=== PATIENT | female | born 1960 | race Caucasian/White ===

== ENCOUNTER 2017-02-15 19:34 | Emergency (ER) | payer BC ==
[2017-02-15 19:40] VITALS: BP 165/75
[2017-02-15] MEDS ORDERED: HYDROcodone/ACETAMIN 5-325 MG* 1 TAB PO ONE (20:11)
[2017-02-15] MEDS ORDERED: traMADol TAB* 50 MG PO ONE (20:26)
--- NOTE | 2017-03-03 15:30 | ED ---
Lower Extremity - HPI Summary HPI Summary: Patient presents with left knee pain after "pulling" the knee while lifting something large. She has chronic knee pain and has had an MRI recently which showed normal degenerative changes. Denies numbness, tingling, temperature or color changes to the area. She is ambulating, but with pain. She does not take pain medication, but attempts to take ibuprofen for the pain. She has close follow up with ortho. She is just concerned today for a worsening injury. Denies radiation of pain, pain is 8/10 and intermittent. Worse with ambulation and movement, better with rest. - History of Current Complaint Chief Complaint: EDExtremityLower Stated Complaint: LT KNEE PAIN Time Seen by Provider: 02/15/17 19:46 Hx Obtained From: Patient Mechanism Of Injury: Twisted Onset of Pain: Hours Onset/Duration: Still Present Severity Initially: Moderate Severity Currently: Moderate Pain Intensity: 9 Pain Scale Used: 0-10 Numeric Timing: Constant Location: Is Discrete @ - left knee Character Of Pain: Aching Aggravating Factor(s): Standing, Ambulation Alleviating Factor(s): Rest Able to Bear Weight: Yes - Risk Factors Gout Risk Factors: Age Over 40 DVT Risk Factors: Negative Septic Arthritis Risk Factor: Negative - Allergies/Home Medications Allergies/Adverse Reactions: Allergies Allergy/AdvReac Type Severity Reaction Status Date / Time Morphine Allergy Shortness Verified 02/15/17 20:20 of Breath Oxycodone Allergy Shortness Verified 02/15/17 20:20 of Breath PMH/Surg Hx/FS Hx/Imm Hx Previously Healthy: Yes Endocrine/Hematology History: Reports: Hx Thyroid Disease - non-active thyroid Denies: Hx Diabetes Cardiovascular History: Reports: Hx Angina, Hx Coronary Artery Disease, Hx Hypercholesterolemia, Hx Myocardial Infarction Denies: Hx Congestive Heart Failure, Hx Hypertension, Hx Pacemaker/ICD, Hx Valvular Heart Disease Respiratory History: Reports: Hx Sleep Apnea - home cpap Denies: Hx Asthma, Hx Chronic Obstructive Pulmonary Disease (COPD) GI History: Comment Only: Hx Gall Bladder Disease - gall bladder removal 2010 History: Denies: Hx Renal Disease Musculoskeletal History: Reports: Hx Arthritis - back/hips Sensory History: Reports: Hx Contacts or Glasses - reading glasses Denies: Hx Hearing Aid Opthamlomology History: Reports: Hx Contacts or Glasses - reading glasses Neurological History: Reports: Hx Migraine Psychiatric History: Denies: Hx Panic Disorder - Cancer History Hx Chemotherapy: No Hx Radiation Therapy: No - Surgical History Surgery Procedure, Year, and Place: choly-2011; c section x3; removal of bone spur on LEFT heel 2009; 2 Cardiac stents. LEFT LEG ANGIOPLASTY 2016 Hx Anesthesia Reactions: No - Immunization History Date of Tetanus Vaccine: up to date Date of Influenza Vaccine: 2013 Hx Pertussis Vaccination: No Immunizations Up to Date: Unable to Obtain/Confirm Infectious Disease History: No Infectious Disease History: Denies: Traveled Outside the [place] in Last 30 Days - Family History Known Family History: Positive: Other - breast cancer (mother) - Social History Occupation: Employed Full-time Lives: With Family Alcohol Use: Rare Alcohol Amount: 1-2 drinks Hx Substance Use: No Substance Use Type: Reports: None Hx Tobacco Use: Yes Smoking Status (MU): Light Every Day Tobacco Smoker Type: Cigarettes Amount Used/How Often: 1/2 ppd Length of Time of Smoking/Using Tobacco: 37 years Have You Smoked in the Last Year: Yes Review of Systems Constitutional: Negative Eyes: Negative Respiratory: Negative Gastrointestinal: Negative Positive: no symptoms reported, see HPI Positive: Arthralgia, Myalgia Skin: Negative Psychological: Normal All Other Systems Reviewed And Are Negative: Yes Physical Exam - Summary Physical Exam Summary: Thorough physical exam was performed, focusing on knee special tests of the left knee. Pain on palpation over lateral aspect and superior aspect of knee with mild amount of effusion. Due to patient pain around injury, physical exam was limited. Valgus and varus force without pain. No posterior sag sign, negative posterior drawer test, + anterior drawer test. Quadriceps active test negative. Negative mcmurrys test. No laxity in the joint noted. No temperature change or pallor noted bilaterally. No ecchymosis noted over knee. No lesion or disruption of skin is seen. Unable to bear weight. Pulses intact bilaterally. Triage Information Reviewed: Yes Vital Signs On Initial Exam: Initial Vitals Temp Pulse Resp BP Pulse Ox 96.9 F 80 16 165/75 98 02/15/17 19:38 02/15/17 19:38 02/15/17 19:38 02/15/17 19:38 02/15/17 19:38 Vital Signs Reviewed: Yes Appearance: Positive: Well-Appearing, Well-Nourished Skin: Positive: Warm, Skin Color Reflects Adequate Perfusion Head/Face: Positive: Normal Head/Face Inspection Eyes: Positive: EOMI, PAULA, Conjunctiva Clear Neck: Positive: Supple, No Lymphadenopathy Respiratory/Lung Sounds: Positive: Clear to Auscultation, Breath Sounds Present Cardiovascular: Positive: Normal, RRR Musculoskeletal: Positive: Pain @ - left knee Neurological: Positive: Speech Normal Psychiatric: Positive: Normal Diagnostics - Vital Signs Vital Signs Temp Pulse Resp BP Pulse Ox 02/15/17 20:14 96.9 F 80 16 165/75 100 02/15/17 19:38 96.9 F 80 16 165/75 98 - Laboratory Lab Statement: Any lab studies that have been ordered have been reviewed, and results considered in the medical decision making process. Lower Extremity Course/Dx - Course Course Of Treatment: Despite MRI, with new injury, atient sent to imaging. Xray negative for fracture or other acute findings. Soft tissue swelling noted over the knee. Knee was fatuma wrapped to patient comfort to allow for immobilization for this period of time. Tramadol given. Patient given orthopedic follow up in 5-7 days. Encouraged Ibuprofen 600mg three times daily with meals for pain. Return precautions given. Educated patient regarding ankle injuries and healing time and the possibility of further evaluation and imaging as orthopedist sees fit. - Diagnoses Differential Diagnosis/HQI/PQRI: Positive: Fracture (Closed), Fracture (Open), Sprain, Strain Provider Diagnoses: Knee strain Discharge - Discharge Plan Condition: Stable Disposition: HOME Prescriptions: traMADol TAB* [Ultram*] 50 mg PO Q8H PRN #15 tab MDD 4 PRN Reason: Pain Patient Education Materials: Knee Pain (ED) Referrals: Daniel Pierce [employer] [Primary Care Provider] - Additional Instructions: Follow up with orthopedic physician in 5-7 days. Pain medication has been prescribed to you. If numbness, tingling, decreased sensation, increased pain, temperature changes or pallor noted in toes, come back to ER immediately. Protect the area. For your comfort level, do not bear weight, pull or push until you can injury is somewhat healed. This may involve the need for immobilization or crutches for a period of time. Rest the involved area, but not too long. You may need to be off your injury for some time to allow for healing, however excessive immobilization of joints can lead to stiffness and delay healing time. Early mobilization is encouraged if it is pain-free. Ice. Not directly on the skin. Cover with a towel. Apply ice no more than 30 minutes at a time Compression: You may use and keep an fatuma wrap bandage over the injury to decrease swelling. Again, this should be limited and be taken off periodically to encourage early range of motion and mobilization. Elevate: Try to elevate the injured area above the heart whenever possible.
== END 2017-02-15 20:35 | disposition home or self-care (01) ==
LOC: ED 19:34
DX: S86.912A Strain of unspecified muscle(s) and tendon(s) at lower leg level, left leg, initial encounter (principal); X50.0XXA Overexertion from strenuous movement or load, initial encounter; Y93.9 Activity, unspecified; Y92.9 Unspecified place or not applicable; E07.9 Disorder of thyroid, unspecified; I25.119 Atherosclerotic heart disease of native coronary artery with unspecified angina pectoris; Z95.5 Presence of coronary angioplasty implant and graft; E78.00 Pure hypercholesterolemia, unspecified; G47.30 Sleep apnea, unspecified; G43.909 Migraine, unspecified, not intractable, without status migrainosus; Z90.49 Acquired absence of other specified parts of digestive tract; Z88.5 Allergy status to narcotic agent; F17.210 Nicotine dependence, cigarettes, uncomplicated
CPT/HCPCS: 99282; A9270-GY

== ENCOUNTER 2017-03-16 10:20 | Observation (INO) | payer BC ==
[2017-03-16] MEDS ORDERED: Aspirin Low Dose CHEW TAB* 81 MG PO ONE (11:34)
[2017-03-16 12:20] LABS: Hematocrit 41 % (35-47); Hemoglobin 13.6 g/dl (12.0-16.0); Mean Corpuscular HGB Conc 33 g/dl (31-36); Mean Corpuscular Hemoglobin 29 pg (27-31); Mean Corpuscular Volume 87 fL (80-97); Mean Platelet Volume 8 um3 (7.4-10.4); Red Blood Count 4.69 10^6/ul (4.0-5.4); Red Cell Distribution Width 16 % (10.5-15); White Blood Count 6.4 10^3/ul (3.5-10.8)
[2017-03-16 12:29] LABS: Albumin 4.2 g/dL (3.2-5.2); BUN/Creatinine Ratio 12.2 (8-20); Calcium 9.8 mg/dL (8.6-10.3); EGFR African American 93.4 (>60); EGFR Non-African American 72.6 (>60); Globulin 3.1 g/dL (2-4); Potassium 3.7 mmol/L (3.5-5.0); Total Bilirubin 0.5 mg/dL (0.2-1.0); Total Protein 7.3 g/dL (6.4-8.9)
--- NOTE | 2017-03-16 12:30 | RAD ---
HISTORY: Chest pain COMPARISONS: March 17, 2016 VIEWS:1: Single frontal portable view of the chest at 11:42 AM FINDINGS: LINES AND TUBES: None. CARDIOMEDIASTINAL SILHOUETTE: The cardiomediastinal silhouette is normal for portable technique. PLEURA: The costophrenic angles are sharp. No pleural abnormalities are noted. LUNG PARENCHYMA: The lungs are clear. ABDOMEN: The upper abdomen is clear. There is no subphrenic gas. BONES AND SOFT TISSUES: No bone or soft tissue abnormalities are noted. IMPRESSION: NO ACTIVE CARDIOPULMONARY DISEASE.
[2017-03-16] MEDS ORDERED: Iohexol 350* (CONTRAST) 500 ML MDV IV ONE (13:42)
[2017-03-16] MEDS: Nitroglycerin TAB 0.4 MG* 0.4 MG TAB SL ONE ×2 (13:55→14:02)
--- NOTE | 2017-03-16 13:56 | RAD ---
HISTORY: Chest pain, shortness of breath COMPARISONS: July 02, 2015 TECHNIQUE: Multiple contiguous axial CT scans of the chest were obtained after the administration of nonionic intravenous contrast, timed to the pulmonary arterial phase of contrast enhancement.. Coronal and sagittal multiplanar reformations are also submitted for review. FINDINGS: NECK AND THYROID: The lower neck and thyroid are unremarkable. CHEST WALL: There is no lower cervical, axillary, or supraclavicular lymphadenopathy by size criteria. HEART AND PERICARDIUM: The heart is unremarkable. AORTA AND PULMONARY VASCULATURE: There is no pulmonary arterial filling defect to suggest pulmonary embolism. Evaluation of the aorta is limited due to technique. The aorta is unremarkable. MEDIASTINUM: There is no mediastinal lymphadenopathy by size criteria. JOLLY: There is no hilar lymphadenopathy by size criteria. AIRWAY AND ESOPHAGUS: The airway is unremarkable, without endobronchial filling defect. The esophagus is grossly normal. LUNG PARENCHYMA: The lungs are clear. The subpleural nodule noted on 2016 examination is not well-visualized on the current examination PLEURA: No pleural abnormalities are noted. UPPER ABDOMEN: The upper abdomen is unremarkable. BONES AND SOFT TISSUES: No bone or soft tissue abnormalities are noted. OTHER: None. IMPRESSION: NO PULMONARY ARTERIAL FILLING DEFECT TO SUGGEST PULMONARY EMBOLISM
[2017-03-16] MEDS ORDERED: Nitroglycerin TAB 0.4 MG* 0.4 MG TAB SL ONE (14:34)
[2017-03-16] MEDS ORDERED: Morphine INJ* 2 MG/ML 1 ML SYRINGE IV ONE (14:34)
[2017-03-16] MEDS ORDERED: HYDROmorphone* 1 MG/ML 1 ML SYR IV SLOW PU ONE (14:44)
[2017-03-16] MEDS ORDERED: Ketorolac INJ* 30 MG/ML 1 ML VIAL IV PUSH ONE (14:46)
[2017-03-16] MEDS ORDERED: Ketorolac INJ* 30 MG/ML 1 ML VIAL ONE (14:47)
[2017-03-16] MEDS: Heparin VIAL(*) 5000 UNITS/ML VIAL (FIVE THOUSAND) SUBCUT SCH (20:53)
[2017-03-16] MEDS ORDERED: Metoprolol Tartrate TAB* 25 MG PO SCH (21:00)
[2017-03-16] MEDS: Nitroglycerin TAB 0.4 MG* 0.4 MG TAB SL PRN ×2 (21:34→21:44)
--- NOTE | 2017-03-16 22:08 | HP ---
CC: Daniel Pierce NP * [facility] MEDICINE HISTORY AND PHYSICAL: DATE OF ADMISSION: 03/16/17 PRIMARY CARE PROVIDER: Daniel Pierce NP ATTENDING PHYSICIAN: Dr. Diogo Barron * (dictation provided by Allie Crum NP ). CHIEF COMPLAINT: Chest pain. HISTORY OF PRESENT ILLNESS: Ms. Thorpe is a 56-year-old female with a past medical history of coronary artery disease with an OK in 2014, for which 2 stents were placed as well as peripheral vascular disease, obstructive sleep apnea, hypothyroidism, and continued smoking, who presents to the hospital today with concern for chest pain. Ms. Thorpe states that she recently ran out of her prescription for Effient. She was off Effient for 5 days. She resumed it on Thursday. On Thursday evening, she developed chest discomfort. She described it as midsternal, radiating into her back. It does not radiate into the arms or neck. She has had nausea or shortness of breath. She has had some mild diarrhea. She has been tolerating oral intake well. She states that the pain is constant, is not relieved or worsened by anything. At this point, in the emergency room, she said she is comfortable and has no further pain after receiving nitroglycerin. She last followed up with Dr. Zarco 2 months ago and it was a routine appointment with no issues identified. The patient was admitted to the hospital in March 2016 for chest pain, during which time, a stress test was performed, which was read as low risk. In the emergency room, Ms. Thorpe had 2 troponins, which were 0.00 and 0.00. She had an EKG, however, which did show flattening across the board on all leads in the T waves compared to a previous from 03/18/16. PAST MEDICAL HISTORY: 1. Coronary artery disease with OK, 2 stents placed to the RCA in 2014. 2. Hypothyroidism. 3. Hypertension. 4. Peripheral vascular disease. 5. Hyperlipidemia. 6. GERD. 7. Obstructive sleep apnea. 8. History of 3 C-sections. 9. Cholecystectomy. MEDICATIONS: 1. Effient 10 mg p.o. daily. 2. Aspirin 81 mg p.o. daily. 3. Meloxicam 15 mg p.o. daily. 4. Atorvastatin 80 mg p.o. daily. 5. Metoprolol tartrate 25 mg p.o. b.i.d. ALLERGIES: To MORPHINE and OXYCODONE, which the patient states caused severe chest pain. FAMILY HISTORY: The patient reports her mother has breast cancer history, but is alive. She does not know her father's history. SOCIAL HISTORY: The patient is a smoker since she was 17, she quit for a short time after her heart attack, but is now back to smoking one-half pack per day. She drinks alcohol only very occasionally. She states her is her healthcare proxy. REVIEW OF SYSTEMS: A 14-point review of systems was completed with Ms. Thorpe and all those not mentioned above were negative. PHYSICAL EXAMINATION GENERAL: Ms. Thorpe is sitting in the bed. She is in no acute distress. VITAL SIGNS: Temperature 97.8, heart rate 51, respiratory rate 14, O2 saturation 95% on room air, blood pressure 154/97. LUNGS: Clear to auscultation bilaterally with no accessory muscle use and good aeration. HEART: S1, S2. No murmur, rub, or gallop, and regular. ABDOMEN: Soft, nontender with bowel sounds positive x4. EXTREMITIES: No cyanosis or edema. NEURO: She is alert. She is oriented x3. She moves all extremities equally. There is no facial asymmetry or focal weakness. Extraocular movements are intact. SKIN: Intact. DIAGNOSTIC STUDIES/LAB DATA: WBC 6.4, hemoglobin 13.6, hematocrit 41, platelet count 197. Sodium 138, potassium 3.7, chloride 104, serum bicarbonate 27, BUN 10, creatinine 0.82, glucose 103, lactic acid 0.9. Troponin 0.00 and 0.00. EKG shows sinus bradycardia with flattened T waves across all the leads, heart rate about 57. Chest/thorax CTA shows no pulmonary arterial filling defect to suggest pulmonary embolism. Chest x-ray shows no active cardiopulmonary disease. ASSESSMENT AND PLAN: Ms. Thorpe is a 56-year-old female with past medical history of coronary artery disease with myocardial infarction and stent placement x2 to right coronary artery as well as persistent smoking and hypertension, who presents today to the hospital with concern for chest pain at rest, persistent over the past 3 days. Our plans are for observation in the hospital for the followin. Chest pain: The patient reports nonexertional chest pain that has been steady for the past 3 days. She has had 2 troponins, which are negative; however, her EKG did show flattening of T waves across all leads. Our plans will be for observation in the hospital for a stress test tomorrow. In the meantime, she will have a third troponin and telemetry monitoring, also repeat her EKG in the a.m. 2. Hypertension. Continue metoprolol. 3. History of coronary artery disease. Continue aspirin. 4. Hyperlipidemia. Continue atorvastatin. 5. Obstructive sleep apnea. The patient will be offered BiPAP. 6. DVT prophylaxis. With heparin subcu. 7. Disposition. To telemetry floor. TIME SPENT: Approximately 60 minutes was spent on the admission of this patient , more than half the time was spent with the patient at the bedside reviewing the events leading up to this hospitalization, performing the physical examination, and reviewing my plan of care. ALLIE CRUM NP [id number]/[facility] #: [id number] MONICA
[2017-03-16] MEDS ORDERED: Acetaminophen TAB* 325 MG PO PRN (23:40)
--- NOTE | 2017-03-17 00:05 | PN ---
Progress Note - Progress Note Date of Service: 03/17/17 Note: Paged by RN for persistent HR in low 40's. Patient asymptomatic at rest. BP normal. Will decrease metoprolol to 12.5 mg PO BID
[2017-03-17] MEDS: Heparin VIAL(*) 5000 UNITS/ML VIAL (FIVE THOUSAND) SUBCUT SCH ×2 (05:10→13:55)
[2017-03-17 06:02] LABS: HDL Cholesterol 41.5 mg/dL
[2017-03-17] MEDS ORDERED: Atorvastatin* 80 MG TAB PO SCH (09:00)
[2017-03-17] MEDS ORDERED: Aspirin EC Low Dose* 81 MG TAB.EC PO SCH (09:00)
[2017-03-17] MEDS ORDERED: Metoprolol Tartrate TAB* 25 MG PO SCH (09:00)
[2017-03-17] MEDS ORDERED: CMCS: Prasugrel (NF) 10 MG PO SCH (09:00)
--- NOTE | 2017-03-17 11:35 | PN ---
Subjective Date of Service: 03/17/17 Interval History: Patient seen this morning. Reports some mild chest pain that has been persistent , improved from presentation. No associated SOB, nausea, vomiting, diaphoresis. Says her previous cardiac events caused much more significant pain. Family History: Unchanged from Admission Social History: Unchanged from Admission Past Medical History: Unchanged from Admission Objective Active Medications: Acetaminophen (Tylenol Tab*) 650 mg PO Q6H PRN Aspirin (Aspirin Ec Low Dose*) 81 mg PO DAILY [facility] Atorvastatin Calcium (Lipitor*) 80 mg PO DAILY [facility] Heparin Sodium (Porcine) (Heparin Vial(*)) 5,000 units SUBCUT Q8HR [facility] Metoprolol Tartrate (Lopressor Tab*) 12.5 mg PO BID [facility] Nitroglycerin (Nitroglycerin Tab 0.4 Mg*) 0.4 mg SL Q5M PRN Prasugrel (Effient (Nf)) 10 mg PO DAILY [facility] Vital Signs 03/16/17 03/16/17 03/16/17 16:29 19:33 22:44 Temperature 97.2 F 97.5 F 98.6 F Pulse Rate 51 52 50 Respiratory 16 20 18 Rate Blood Pressure 149/73 175/78 148/76 (mmHg) O2 Sat by Pulse 97 97 97 Oximetry 03/16/17 03/17/17 03/17/17 23:34 00:04 03:59 Temperature 97.3 F 97.5 F Pulse Rate 48 48 54 Respiratory 16 16 Rate Blood Pressure 129/69 131/67 142/85 (mmHg) O2 Sat by Pulse 96 94 Oximetry 03/17/17 03/17/17 06:22 07:16 Temperature 97.4 F Pulse Rate 48 Respiratory 16 20 Rate Blood Pressure 179/84 (mmHg) O2 Sat by Pulse 95 Oximetry Oxygen Devices in Use Now: None Appearance: Middle-aged, obese, F, laying in bed in NAD Eyes: No Scleral Icterus Ears/Nose/Mouth/Throat: Mucous Membranes Moist Neck: NL Appearance and Movements; NL JVP Respiratory: Symmetrical Chest Expansion and Respiratory Effort, Clear to Auscultation Cardiovascular: NL Sounds; No Murmurs; No JVD, RRR Abdominal: NL Sounds; No Tenderness; No Distention Lymphatic: No Cervical Adenopathy Extremities: No Edema Skin: No Rash or Ulcers Neurological: Alert and Oriented x 3 Result Diagrams: 03/16/17 12:04 03/16/17 12:04 Assess/Plan/Problems-Billing Assessment: Chest pain in a 56 yo F with hx of HTN, HLD, CAD s/p PCI, PVD, hypothyroidism, MARI - Patient Problems (1) Chest pain Current Visit: Yes Comment: Still present to a mild degree. Some bradycardia on tele. Troponins remain negative. EKG with persistent T wave flattening. Stress test pending. (2) CAD (coronary artery disease) Current Visit: Yes Comment: Continue ASA, prasugrel, statin. Metoprolol decreased overnight due to bradycardia. (3) DVT prophylaxis Current Visit: Yes Comment: HSQ Status and Disposition: Potential discharge if stress test negative
[2017-03-17] MEDS ORDERED: Regadenoson* 0.4 MG/5 ML SYRINGE ONE (11:43)
[2017-03-17] MEDS ORDERED: Aminophylline IV* 25 MG/ML 10 ML VIAL ONE (11:43)
[2017-03-17 12:52] VITALS: BP 162/79
--- NOTE | 2017-03-17 14:13 | RAD ---
Edited for charges. INDICATION: Chest pain. Previous myocardial infarction. Multiple risk factors. COMPARISON: March 18, 2016 TECHNIQUE: 10.890 mCi of Tc-99m Myoview were administered IV. SPECT images of the heart were obtained. Later on the same day. Under the direction of Dr. Jordan, the patient was given an IV injection of a pharmacologic stress agent. Subsequently, the patient was given an IV injection of 26.600 mCi Tc-99m Myoview. SPECT images of the heart were obtained and a gated wall motion study was performed. FINDINGS: Gated wall motion images were obtained at stress and demonstrate wall motion to be within normal limits. The calculated left ventricular ejection fraction is 73 % at stress. Estimated LEFT ventricular end diastolic volume is 79 mL. TID 1.13. Anterior breast attenuation noted. Based on review of the attenuation corrected and non corrected images the distribution of radiopharmaceutical within the myocardium on the stress and rest images is within normal limits. No fixed or reversible regions of hypoperfusion evident. IMPRESSION: 1. No evidence for stress induced myocardial ischemia or presence of an infarct. 2. Normal left ventricular wall motion and ejection fraction. ASSESSMENT: LOW RISK. Based on imaging criteria from ACC/AHA 2002 Guideline Update for the Management of Patients With Chronic Stable Angina Table 23. Noninvasive Risk Stratification. MTDD
--- NOTE | 2017-03-18 02:52 | DS ---
CC: Daniel Pierce NP * DISCHARGE SUMMARY: DATE OF ADMISSION: 03/16/17 DATE OF DISCHARGE: 03/17/17 PRIMARY CARE PHYSICIAN: Daniel Pierce NP PRINCIPAL DISCHARGE DIAGNOSIS: Chest pain. SECONDARY DIAGNOSES: 1. History of coronary artery disease. 2. Hypothyroidism. 3. Hypertension. 4. Peripheral vascular disease. 5. Hyperlipidemia. 6. Gastroesophageal reflux disease. 7. Obstructive sleep apnea. DISCHARGE MEDICATION REGIMEN: 1. Meloxicam 50 mg by mouth daily. 2. Prasugrel 10 mg by mouth daily. 3. Metoprolol tartrate 12.5 mg by mouth 2 times daily. 4. Atorvastatin 80 mg by mouth daily. 5. Aspirin 81 mg by mouth daily. Medication changes made: Metoprolol dose decreased from 25 to 12.5 mg by mouth 2 times daily. STUDIES DONE DURING HOSPITALIZATION: Chest x-ray. Impression: No active cardiopulmonary disease. CTA of the chest: No pulmonary arterial filling defect to suggest pulmonary embolism. Nuclear cardiac stress test: Impression: No evidence for a stress-induced myocardial ischemia or presence of an infarct. Normal left ventricular wall motion and ejection fraction. Assessment: Low risk. HISTORY OF PRESENT ILLNESS AND HOSPITAL SUMMARY: Please see the full history and physical by Allie Crum NP, for full details. Briefly, Ms. Thorpe is a 56- year-old female with a past medical history as above who presented to the hospital with 2 to 3 days of a constant chest pain. She felt like perhaps she had some improvement in the chest pain after receiving nitroglycerin in the emergency department. Despite her constant pain, the patient's troponins remain negative, although her EKG did show some T-wave flattening which was new. She was monitored in the hospital overnight. She did have some bradycardia with heart rates dipping into the 40s. Her metoprolol was decreased from 25 to 12.5 mg by mouth 2 times daily. She underwent a nuclear cardiac stress test that was read as low risk. It does not seem that this chest pain is cardiac in nature. The patient will be discharged home with PCP followup as an outpatient. TIME SPENT: Total time spent on this discharge, 35 minutes. This is a summary of the hospitalization, please see the full medical record for further details. [id number]/[facility] #: [id number] MTDD
== END 2017-03-17 14:49 | disposition home or self-care (01) ==
LOC: ED 10:20 → MEDTELE 15:52
PROVIDERS: ADMIT Internal Medicine; ATTEND Hospitalist
DX: R07.9 Chest pain, unspecified (principal); I25.10 Atherosclerotic heart disease of native coronary artery without angina pectoris; E03.9 Hypothyroidism, unspecified; I10 Essential (primary) hypertension; I73.9 Peripheral vascular disease, unspecified; E78.5 Hyperlipidemia, unspecified; K21.9 Gastro-esophageal reflux disease without esophagitis; G47.33 Obstructive sleep apnea (adult) (pediatric); R00.1 Bradycardia, unspecified; I25.2 Old myocardial infarction; Z95.5 Presence of coronary angioplasty implant and graft; Z79.82 Long term (current) use of aspirin; F17.210 Nicotine dependence, cigarettes, uncomplicated
CPT/HCPCS: 36415; 71010; 71275; 78452; 80053; 80061; 83605; 84484; 85025; 93005; 93017; 94660; 96374; 96375; 99283; 99406; A9270-GY; A9502; G0378; J0280; J1644; J1885; J2270; J2785; Q9967

== ENCOUNTER 2017-06-25 00:45 | Emergency (ER) | payer BC ==
[2017-06-25] MEDS ORDERED: NS 0.9% 1000 ML* 1,000 ML IV ONE (00:55)
[2017-06-25] MEDS ORDERED: Ketorolac INJ* 30 MG/ML 1 ML VIAL IV PUSH ONE (01:42)
[2017-06-25] MEDS ORDERED: Ondansetron INJ* 2 MG/ML VIAL IV ONE (01:43)
[2017-06-25 01:44] LABS: Hematocrit 33 % (35-47); Hemoglobin 11.3 g/dl (12.0-16.0); Mean Corpuscular HGB Conc 34 g/dl (31-36); Mean Corpuscular Hemoglobin 30 pg (27-31); Mean Corpuscular Volume 89 fL (80-97); Mean Platelet Volume 8 um3 (7.4-10.4); Red Blood Count 3.71 10^6/ul (4.0-5.4); Red Cell Distribution Width 14 % (10.5-15); White Blood Count 8.9 10^3/ul (3.5-10.8)
[2017-06-25 02:00] LABS: Albumin 3.9 g/dL (3.2-5.2); BUN/Creatinine Ratio 13.2 (8-20); C Reactive Protein 7.53 mg/L (< 5.00); Calcium 9.5 mg/dL (8.6-10.3); EGFR African American 101.6 (>60); Globulin 2.7 g/dL (2-4); Magnesium 1.8 mg/dL (1.9-2.7); Potassium 3.6 mmol/L (3.5-5.0); Total Bilirubin 0.4 mg/dL (0.2-1.0); Total Protein 6.6 g/dL (6.4-8.9)
[2017-06-25] MEDS ORDERED: Magnesium Sulfate 1 GM IV* 1 GM/100 ML BAG IV ONE (02:16)
[2017-06-25] MEDS ORDERED: Al Hydrox/Mg Hydrox/Simet LIQ* 30 ML UDC PO ONE (02:19)
[2017-06-25] MEDS ORDERED: Lidocaine 2% VISCOUS* 15 ML UDC PO ONE (02:19)
[2017-06-25] MEDS ORDERED: Magnesium Oxide TAB* 400 MG PO ONE (02:22)
[2017-06-25 03:11] LABS: Urine Bilirubin Negative (Negative); Urine Glucose Negative (Negative); Urine Nitrite Negative (Negative)
[2017-06-25 04:49] VITALS: BP 127/65
--- NOTE | 2017-06-25 16:08 | ED ---
Nickolas Ko Alfonso, scribed for Halle Ellis MD on 06/25/17 at 0111 . Abdominal Pain/Female - HPI Summary HPI Summary: This patient is a 57 year old F presenting to [facility] accompanied by with a chief complaint of epigastric pain that woke her up at 2330 06/24/17. She reports the pain is not similar to her IN two years ago. (Pt has [address]). The pain does not radiate. The patient rates the sharp pain 10/10 in severity. Symptoms aggravated by nothing. Symptoms alleviated by nothing. 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 She reports 3 weeks of a cold. Patient reports back pain, left knee pain (chronic), nausea, near syncope, and diaphoresis. Patient denies fever, melena, blood in the stools, and vomiting. Pt thinks her sxs may be due to the Tylenol with codeine, although she took one tab of Tylenol with codeine at 3pm on 06/24/17 without adverse effect. Her medications include gabapentin, metoprolol, ASA 81 mg, atorvastatin, and levothyroxine. - History of Current Complaint Chief Complaint: EDAbdPain Stated Complaint: ABD PAIN/DIFFICULTY BREATHING Time Seen by Provider: 06/25/17 00:54 Hx Obtained From: Patient, Family/Bradley Linebacker Crewmember - Onset/Duration: Sudden Onset, Lasting Hours, Still Present Timing: Constant Severity Initially: Moderate Severity Currently: Severe Pain Intensity: 10 Pain Scale Used: 0-10 Numeric Location: Epigastric Radiates: No Character: Sharp Aggravating Factor(s): Nothing Alleviating Factor(s): Nothing Associated Signs and Symptoms: Positive: Diaphoresis, Nausea, Other: - back pain , left knee pain (chronic), nausea, near syncope, and diaphoresis. Patient denies fever, melena, blood in the stools, and vomiting. Allergies/Adverse Reactions: Allergies Allergy/AdvReac Type Severity Reaction Status Date / Time Morphine Allergy Shortness Verified 06/25/17 00:50 of Breath Oxycodone Allergy Shortness Verified 06/25/17 00:50 of Breath PMH/Surg Hx/FS Hx/Imm Hx Previously Healthy: No Endocrine/Hematology History: Reports: Hx Anticoagulant Therapy - Prasugrel, Hx Thyroid Disease - non-active thyroid Denies: Hx Diabetes Cardiovascular History: Reports: Hx Angina, Hx Coronary Artery Disease, Hx Hypercholesterolemia, Hx Myocardial Infarction Denies: Hx Congestive Heart Failure, Hx Hypertension, Hx Pacemaker/ICD, Hx Valvular Heart Disease Respiratory History: Reports: Hx Sleep Apnea - home cpap Denies: Hx Asthma, Hx Chronic Obstructive Pulmonary Disease (COPD) GI History: Reports: Hx Diverticulosis, Hx Gall Bladder Disease - gall bladder removal 2010, Hx Gastroesophageal Reflux Disease History: Denies: Hx Renal Disease Musculoskeletal History: Reports: Hx Arthritis - back/hips Sensory History: Reports: Hx Contacts or Glasses - reading glasses Denies: Hx Hearing Aid Opthamlomology History: Reports: Hx Contacts or Glasses - reading glasses Denies: Hx Legally Blind EENT History: Denies: Hx Deafness Neurological History: Reports: Hx Headaches, Hx Migraine Psychiatric History: Denies: Hx Panic Disorder - Cancer History Hx Chemotherapy: No Hx Radiation Therapy: No - Surgical History Surgery Procedure, Year, and Place: [facility]; c section x3; removal of bone spur on LEFT heel 2009; 2 Cardiac stents. LEFT LEG ANGIOPLASTY 2016 Hx Anesthesia Reactions: No - Immunization History Date of Tetanus Vaccine: up to date Infectious Disease History: No Infectious Disease History: Denies: Traveled Outside the [place] in Last 30 Days - Family History Known Family History: Positive: Other - breast cancer (mother) - Social History Lives: With Family Alcohol Use: Occasionally Alcohol Amount: 1-2 drinks Hx Substance Use: No Substance Use Type: Reports: None Hx Tobacco Use: Yes Smoking Status (MU): Current Every Day Smoker Type: Cigarettes Amount Used/How Often: 1/2 ppd Length of Time of Smoking/Using Tobacco: 37 years Have You Smoked in the Last Year: Yes Review of Systems Positive: Skin Diaphoresis. Negative: Fever Cardiovascular: Negative Respiratory: Negative Positive: Abdominal Pain, Nausea, Other - Negative melena, blood in the stools. Negative: Vomiting Positive: Other - Back pain, left knee pain (chronic). Skin: Negative Positive: Syncope - Near Psychological: Normal All Other Systems Reviewed And Are Negative: Yes Physical Exam Triage Information Reviewed: Yes Vital Signs On Initial Exam: Initial Vitals Temp Pulse Resp BP Pulse Ox 97.5 F 62 20 168/77 100 06/25/17 00:47 06/25/17 00:47 06/25/17 00:47 06/25/17 00:47 06/25/17 00:47 Vital Signs Reviewed: Yes Appearance: Positive: Well-Appearing, Pain Distress, Obese Skin: Positive: Warm, Skin Color Reflects Adequate Perfusion, Other - Ecchymosis at left anterior tibia Head/Face: Positive: Normal Head/Face Inspection Eyes: Positive: EOMI, Conjunctiva Clear ENT: Positive: Normal ENT inspection Neck: Positive: Supple Respiratory/Lung Sounds: Positive: Clear to Auscultation, Breath Sounds Present , Other - No respiratory distress Cardiovascular: Positive: RRR, Pulses are Symmetrical in both Upper and Lower Extremities, Other - Brisk capillary refill. Negative: Murmur Abdomen Description: Positive: Soft, Other: - Epigastric tenderness, nondistended, no masses, no bruits Bowel Sounds: Positive: Present Musculoskeletal: Positive: Strength/ROM Intact Neurological: Positive: Sensory/Motor Intact, Alert, Oriented to Person Place, Time, Facial Symmetry, Speech Normal Psychiatric: Positive: Normal Diagnostics - Vital Signs Vital Signs Temp Pulse Resp BP Pulse Ox 06/25/17 00:47 97.5 F 62 20 168/77 100 - Laboratory Lab Results: Lab Results 06/25/17 06/25/17 06/25/17 Range/Units 01:30 01:30 01:30 WBC 8.9 (3.5-10.8) 10^3/ul RBC 3.71 L (4.0-5.4) 10^6/ul Hgb 11.3 L (12.0-16.0) g/dl Hct 33 L (35-47) % MCV 89 (80-97) fL MCH 30 (27-31) pg MCHC 34 (31-36) g/dl RDW 14 (10.5-15) % Plt Count 173 (150-450) 10^3/ul MPV 8 (7.4-10.4) um3 Neut % (Auto) 52.8 (38-83) % Lymph % (Auto) 33.7 (25-47) % [place] % (Auto) 10.9 H (1-9) % Eos % (Auto) 2.4 (0-6) % Baso % (Auto) 0.2 (0-2) % Absolute Neuts (auto) 4.7 (1.5-7.7) 10^3/ul Absolute Lymphs (auto) 3.0 (1.0-4.8) 10^3/ul Absolute Monos (auto) 1.0 H (0-0.8) 10^3/ul Absolute Eos (auto) 0.2 (0-0.6) 10^3/ul Absolute Basos (auto) 0 (0-0.2) 10^3/ul Absolute Nucleated RBC 0.02 10^3/ul Nucleated RBC % 0.2 INR (Anticoag Therapy) 0.73 L (0.89-1.11) Sodium 137 (133-145) mmol/L Potassium 3.6 (3.5-5.0) mmol/L Chloride 105 (101-111) mmol/L Carbon Dioxide 27 (22-32) mmol/L Anion Gap 5 (2-11) mmol/L BUN 10 (6-24) mg/dL Creatinine 0.76 (0.51-0.95) mg/dL Est GFR ( Amer) 101.6 (>60) Est GFR (Non-Af Amer) 79.0 (>60) BUN/Creatinine Ratio 13.2 (8-20) Glucose 133 H (70-100) mg/dL Calcium 9.5 (8.6-10.3) mg/dL Magnesium 1.8 L (1.9-2.7) mg/dL Total Bilirubin 0.40 (0.2-1.0) mg/dL AST 19 (13-39) U/L ALT 18 (7-52) U/L Alkaline Phosphatase 59 (34-104) U/L Total Creatine Kinase 89 (10-223) U/L Troponin I 0.00 (<0.04) ng/mL C-Reactive Protein 7.53 H (< 5.00) mg/L Total Protein 6.6 (6.4-8.9) g/dL Albumin 3.9 (3.2-5.2) g/dL Globulin 2.7 (2-4) g/dL Albumin/Globulin Ratio 1.4 (1-3) Amylase 38 (29-103) U/L Lipase 76 (11.0-82.0) U/L Urine Color Urine Appearance Urine pH (5-9) Ur Specific [place] (1.010-1.030) Urine Protein (Negative) Urine Ketones (Negative) Urine Blood (Negative) Urine Nitrate (Negative) Urine Bilirubin (Negative) Urine Urobilinogen (Negative) Ur Leukocyte Esterase (Negative) Urine Glucose (Negative) 06/25/17 06/25/17 Range/Units 02:58 03:55 WBC (3.5-10.8) 10^3/ul RBC (4.0-5.4) 10^6/ul Hgb (12.0-16.0) g/dl Hct (35-47) % MCV (80-97) fL MCH (27-31) pg MCHC (31-36) g/dl RDW (10.5-15) % Plt Count (150-450) 10^3/ul MPV (7.4-10.4) um3 Neut % (Auto) (38-83) % Lymph % (Auto) (25-47) % [place] % (Auto) (1-9) % Eos % (Auto) (0-6) % Baso % (Auto) (0-2) % Absolute Neuts (auto) (1.5-7.7) 10^3/ul Absolute Lymphs (auto) (1.0-4.8) 10^3/ul Absolute Monos (auto) (0-0.8) 10^3/ul Absolute Eos (auto) (0-0.6) 10^3/ul Absolute Basos (auto) (0-0.2) 10^3/ul Absolute Nucleated RBC 10^3/ul Nucleated RBC % INR (Anticoag Therapy) (0.89-1.11) Sodium (133-145) mmol/L Potassium (3.5-5.0) mmol/L Chloride (101-111) mmol/L Carbon Dioxide (22-32) mmol/L Anion Gap (2-11) mmol/L BUN (6-24) mg/dL Creatinine (0.51-0.95) mg/dL Est GFR ( Amer) (>60) Est GFR (Non-Af Amer) (>60) BUN/Creatinine Ratio (8-20) Glucose (70-100) mg/dL Calcium (8.6-10.3) mg/dL Magnesium (1.9-2.7) mg/dL Total Bilirubin (0.2-1.0) mg/dL AST (13-39) U/L ALT (7-52) U/L Alkaline Phosphatase (34-104) U/L Total Creatine Kinase (10-223) U/L Troponin I 0.00 (<0.04) ng/mL C-Reactive Protein (< 5.00) mg/L Total Protein (6.4-8.9) g/dL Albumin (3.2-5.2) g/dL Globulin (2-4) g/dL Albumin/Globulin Ratio (1-3) Amylase (29-103) U/L Lipase (11.0-82.0) U/L Urine Color Yellow Urine Appearance Clear Urine pH 6.0 (5-9) Ur Specific [place] 1.017 (1.010-1.030) Urine Protein Negative (Negative) Urine Ketones Negative (Negative) Urine Blood Negative (Negative) Urine Nitrate Negative (Negative) Urine Bilirubin Negative (Negative) Urine Urobilinogen Negative (Negative) Ur Leukocyte Esterase Negative (Negative) Urine Glucose Negative (Negative) Result Diagrams: 06/25/17 01:30 06/25/17 01:30 Lab Statement: Any lab studies that have been ordered have been reviewed, and results considered in the medical decision making process. - EKG 0103 Cardiac Rate: NL EKG Rhythm: Sinus Rhythm - BPM 65 EKG Interpretation: Normal AV/IV conduction time, axis, and QTc. No ectopy. No STEMI. EKG Comparison: Other - Compared to 03/17/17 Q-wave in III now normalized. Re-Evaluation - Re-Evaluation First Eval Re-Evaluation Time: 04:31 Change: Improved Comment: Pain is now a 2/10 in severity. Reviewed plan for discharge. Patient wants to go home. Abdominal Pain Fem Course/Dx - Course Course Of Treatment: Patients medications reviewed this visit. In the ED course the patient was given Zofran, Magnesium, Toradol, Viscous lidocaine, Maalox, and IV fluids with relief of symptoms.Pt has already had cholecystectomy and LFT's and wbc are normal, so no suspicion for GB disease. Pt has 2 troponins that are neg and unchanged EKG, so doubt cardiac etiology. Most likely cause of pain is gastritis due to Tylenol with codeine. Patient will be discharged with follow up from PCP. The patient is agreeable with this plan. - Diagnoses Differential Diagnosis: Positive: Abdominal Aortic Aneurysm, ACS, Gall Bladder Disease, Hepatitis, Peptic Ulcer Disease, Other - gastritis Provider Diagnoses: Epigastric abdominal pain Discharge - Discharge Plan Condition: Stable Disposition: HOME Patient Education Materials: Epigastric Pain (ED) Referrals: Daniel Pierce, [employer] [Primary Care Provider] - 2 Days Additional Instructions: You were given toradol 15mg IV and viscous lidocaine with maalox for pain with good relief. You were given ondansetron for nausea. The EKG and blood work did not show any evidence of a heart attack or any significant abnormalities. Follow up with your doctor. Return to the ER if you have any new or worsening symptoms. The documentation as recorded by the Nickolas flores Alfonso accurately reflects the service I personally performed and the decisions made by , Halle Ellis MD.
== END 2017-06-25 04:49 | disposition home or self-care (01) ==
LOC: ED 00:45
DX: R10.13 Epigastric pain (principal); I25.2 Old myocardial infarction; F17.210 Nicotine dependence, cigarettes, uncomplicated; Z79.01 Long term (current) use of anticoagulants; I25.10 Atherosclerotic heart disease of native coronary artery without angina pectoris; E78.00 Pure hypercholesterolemia, unspecified; E07.9 Disorder of thyroid, unspecified
CPT/HCPCS: 36415; 80053; 81003; 82150; 82550; 83690; 83735; 84484; 85025; 85610; 86140; 96360; 96374; 96375; 99282; A9270-GY; J1885; J2405; J3475

== ENCOUNTER 2017-12-17 07:58 | Inpatient (IN) | payer BC ==
--- NOTE | 2017-12-08 11:42 | HP ---
HISTORY AND PHYSICAL: DATE OF SURGERY: 12/17/17 DATE OF OFFICE VISIT: 12/04/17 SURGEON: Kathrine Dyer MD * (DICTATED BY COOPER ANGULO) PROCEDURE: Left total knee arthroplasty. CHIEF COMPLAINT: Left knee pain. HISTORY OF PRESENT ILLNESS: Ms. Thorpe is a 57-year-old female with complaints of left knee pain. She has failed conservative management and elected to proceed with a left total knee arthroplasty, which is scheduled for 12/17/[address] Dyer. PAST MEDICAL HISTORY: History of an CA in 2015, coronary artery disease, sleep apnea, GERD, hypothyroidism, and peripheral vascular disease. PAST SURGICAL HISTORY: x3, cholecystectomy, right foot heel spur removal, and cardiac stent placement. CURRENT MEDICATIONS: 1. Atorvastatin calcium 80 mg q.h.s. 2. Nitrostat as needed. 3. Aspirin 81 mg daily. 4. Metoprolol 25 mg twice daily. 5. Effient 10 mg daily. 6. Levothyroxine 112 mcg daily. 7. Tramadol as needed. 8. Hydrochlorothiazide 12.5 mg every day. ALLERGIES: To OXYCODONE causing stomach pain, MORPHINE causing chest pain and pressure; however, she states she cannot take Percocet. FAMILY HISTORY: Cancer and coronary artery disease. SOCIAL HISTORY: She is a 57-year-old female, she lives with her . 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 She smokes half a pack a day. She denies use of drugs. Uses alcohol rarely. REVIEW OF SYSTEMS: A complete 14-point review of systems was reviewed with the patient, it was significant for hypothyroidism and GERD. She denies history of DVT, PE, hepatitis C, or HIV. PHYSICAL EXAMINATION GENERAL: She is well-developed, well-nourished, in no acute distress. VITAL SIGNS: She stands 5 feet 4 inches tall, weighs 245 pounds. Her blood pressure is 138/78, her heart rate is 66. HEENT: Normocephalic and atraumatic. NECK: Supple. No palpable lymph nodes. PULMONARY: Lungs are clear to auscultation bilaterally. CARDIO: Regular rate and rhythm. Strong S1 and S2. ABDOMEN: Soft, nontender, and nondistended. NEUROLOGICAL: She is alert and oriented x3. Cranial nerves II through XII are intact. MUSCULOSKELETAL: Left lower extremity, the skin is intact. There are no open wounds or abrasions. She has some tenderness over the medial and lateral joint line. 10 to 110 degrees of flexion with patellofemoral crepitus. She has 2+ dorsalis pedis pulses and intact sensation. Her lower extremity muscle group strengths are intact at 5/5. ASSESSMENT AND PLAN: Ms. Thorpe is a 57-year-old female with complaints of left knee pain secondary to end-stage osteoarthritis. She has failed conservative management and elected to proceed with a left total knee arthroplasty, which is scheduled for 12/17/[address] Dyer discussed the risks and benefits of surgery at today's visit and all of her questions were answered. She will follow up with Dr. Dyer in 2 weeks after the surgery. While in the hospital, she will be placed on Lovenox for DVT prophylaxis. She will go home on her home-dose Effient. She was instructed by her thermoplastic technician to stop this medication 5 days prior to her surgery. COOPER ANGULO [id number]/[facility] #: [id number] MONICA
[~2017-12-17 07:58] MED LIST: Buffered Lidocaine 0.9% SYRIN* 5 ML/SYR SYRINGE INTRADERM ONE
[2017-12-17] MEDS ORDERED: ceFAZolin 2 GM PREMIX (*) 2 GM/50 ML BAG IVPB ONE (08:14)
[2017-12-17] MEDS ORDERED: Midazolam* 1 MG/ML 5 ML VIAL (5 MG) ONE (09:15)
[2017-12-17] MEDS ORDERED: fentaNYL* 50 MCG/ML 2 ML VIAL (100 MCG VIAL) ONE ×4 (09:15→12:36)
[2017-12-17] MEDS ORDERED: Bupivacaine 0.25% SDV* 30 ML ONE ×2 (09:16→11:11)
[2017-12-17] MEDS ORDERED: Bupivacaine 0.5% PF 10 ML VIAL INJ ONE (09:16)
[2017-12-17] MEDS ORDERED: Atracurium* 10 MG/ML 10 ML VIAL ONE (09:54)
[2017-12-17] MEDS ORDERED: HYDROmorphone INJ* 1 MG/ML CARPUJECT SYRINGE IV PRN (10:37)
[2017-12-17] MEDS ORDERED: Ondansetron INJ* 2 MG/ML VIAL IV PRN (10:37)
[2017-12-17] MEDS ORDERED: DiMENhydriNATE IV* 50 MG/ML VIAL IV PUSH PRN (10:37)
[2017-12-17] MEDS ORDERED: Scopolamine 1.5 mg* PATCH TRANSDERM PRN (10:37)
[2017-12-17] MEDS ORDERED: Naloxone* 0.4 MG/ML 1 ML VIAL IV PRN (10:37)
[2017-12-17] MEDS ORDERED: Ondansetron INJ* 2 MG/ML VIAL ONE (11:11)
[2017-12-17] MEDS ORDERED: EPHEDrine (Pressors)* 50 MG/ML VIAL ONE (12:15)
[2017-12-17] MEDS ORDERED: diPHENhydraMINE IV* 50 MG/ML 1 ml VIAL (BENADRYL) IV PRN (12:20)
[2017-12-17] MEDS ORDERED: Bisacodyl SUPP* 10 MG SUPP PR PRN (12:20)
[2017-12-17] MEDS ORDERED: Acetaminophen TAB* 325 MG PO PRN (12:20)
[2017-12-17] MEDS ORDERED: Polyethylene Glycol 3350* 17 GM PACKET PO PRN (12:20)
[2017-12-17] MEDS ORDERED: Cyclobenzaprine TAB* 10 MG PO PRN (12:20)
[2017-12-17] MEDS ORDERED: diPHENhydraMINE PO* 25 MG PO PRN (12:20)
[2017-12-17] MEDS ORDERED: oxyCODONE/Acetamin 5/325 MG* TAB PO PRN ×2 (12:20)
[2017-12-17] MEDS ORDERED: traZODone TAB* 50 MG TAB PO PRN (12:20)
[2017-12-17] MEDS ORDERED: Magnesium Hydroxide LIQ* 30 ML UDC PO PRN (12:20)
[2017-12-17] MEDS ORDERED: oxyCODONE TAB* 5 MG TAB PO PRN (12:20)
[2017-12-17] MEDS ORDERED: Ondansetron INJ* 2 MG/ML SYRINGE (from 40/20 VIAL) IV PRN (12:20)
[2017-12-17] MEDS ORDERED: Ondansetron TAB* 4 MG PO PRN (12:20)
[2017-12-17] MEDS ORDERED: Nitroglycerin TAB 0.3 MG* 0.3 MG TAB SL PRN (12:29)
[2017-12-17] MEDS ORDERED: HYDROmorphone INJ* 2 MG/ML CARPUJECT SYRINGE ONE ×2 (12:37→15:46)
[2017-12-17] MEDS: fentaNYL* 50 MCG/ML 2 ML VIAL (100 MCG VIAL) IV PRN ×4 (13:01→13:54)
[2017-12-17] MEDS ORDERED: Succinylcholine* 20 MG/ML 10 ML VIAL ONE (13:49)
--- NOTE | 2017-12-17 13:50 | RAD ---
INDICATION: Status post total left knee replacement surgery. TECHNIQUE: 2 views of the left knee were obtained. FINDINGS: The patient is status post total left knee replacement surgery. The bones and prostheses are in normal alignment. There is a surgical drain present anterior to the distal femur. IMPRESSION: STATUS POST TOTAL LEFT KNEE REPLACEMENT SURGERY.
[2017-12-17] MEDS ORDERED: Cyclobenzaprine TAB* 10 MG ONE (14:42)
[2017-12-17] MEDS ORDERED: oxyCODONE/Acetamin 5/325 MG* TAB ONE (14:43)
[2017-12-17] MEDS ORDERED: Albuterol 2.5 MG/3 ML NEB.SOL* (0.083%) INH PRN (15:02)
[2017-12-17] MEDS ORDERED: HYDROmorphone INJ* 2 MG/ML CARPUJECT SYRINGE IV SLOW PU PRN (15:06)
[2017-12-17] MEDS: HYDROmorphone INJ* 2 MG/ML CARPUJECT SYRINGE IV SLOW PU PRN ×3 (15:49→22:15)
[2017-12-17] MEDS ORDERED: Dextrose 50% Syringe 50 ML* 25 GM/50 ML SYRINGE IV PUSH PRN (15:55)
[2017-12-17] MEDS: Atorvastatin* 80 MG TAB PO SCH (18:06)
[2017-12-17] MEDS: Insulin LISPRO* 1 UNITS UNIT SUBCUT SCH (18:07)
[2017-12-17] MEDS: ceFAZolin 1 GM in Dextrose (*) 1 GM/50 ML BAG IVPB SCH (18:07)
--- NOTE | 2017-12-17 21:36 | CONS ---
ADDENDUM NOW INCLUDED ON THIS REPORT CC: Dr. Kathrine Dyer* CONSULTATION REPORT: DATE OF CONSULT: 12/17/17 REQUESTING PROVIDER: Dr. Kathrine Dyer. MY ATTENDING WHILE IN THE HOSPITAL: Dr. Kyung Guzman. REASON FOR CONSULT: Co-management of comorbid medical conditions. HISTORY OF PRESENT ILLNESS: Ms. Thorpe is a 57-year-old female with past medical history significant for MN in 2014 with stents, obstructive sleep apnea , peripheral vascular disease, and hypothyroidism, who is status post total left knee arthroplasty due to severe osteoarthritis. The patient examined postoperatively. The patient had an estimated blood loss of 250 mL in surgery and had spinal anesthesia with a nerve block. The patient states at this time that her left leg is in 10/10 pain, the whole leg from the hip to the foot, worst at the knee. She describes it as an aching pain that does not radiate. The patient received Percocet and had no relief from this. The patient denies chest pain, shortness of breath, dizziness, nausea, vomiting, abdominal pain, or other symptoms beside the pain. The patient has not had any recent illnesses, urinary tract infections, diarrhea. The patient did not take her aspirin for 7 days. The patient has not taken her Effient for 5 days. The patient did not take her hydrochlorothiazide this morning as instructed by her doctor. The patient has had a stress test in 2017, which is read as low risk. The patient is intolerant to many types of pain medication outlined in her chart. The patient received Percocet right before she was seen and was in no distress. The patient has never had a reaction rash to pain medication. PAST MEDICAL HISTORY: MN in 2014, with stent placement; coronary artery disease ; sleep apnea, compliant with CPAP therapy; GERD; hypothyroidism; peripheral vascular disease, status post left leg angioplasty. The patient had listed from her primary care provider that she has COPD, but she has never been told she has this diagnosis and wheezes only infrequently mainly related to upper respiratory infection. PAST SURGICAL HISTORY: x3, cholecystectomy, right foot heel spur removal, cardiac stent placement, left leg arthroplasty in 2016. CURRENT MEDICATIONS: 1. Atorvastatin 80 mg p.o. q.h.s. 2. Nitrostat 0.4 mg as needed for chest pain. 3. Aspirin 81 mg p.o. daily. 4. Metoprolol 25 mg p.o. b.i.d. 5. Effient 10 mg p.o. daily. 6. Levothyroxine 112 mcg daily. 7. Tramadol 50 mg four times a day as needed. 8. Hydrochlorothiazide 12.5 mg daily. The patient also on her list from her primary care provider has albuterol listed as well as Nucynta; however, the patient does not know of these. ALLERGIES: The patient has an allergy to OXYCODONE causing stomach pain, MORPHINE causing chest pain and pressure, and CODEINE with TYLENOL caused shortness of breath. FAMILY HISTORY: The patient's mother of breast cancer. The patient's father has unknown history. The patient's younger brother had open heart surgery related to drug abuse. The patient's brother had open heart surgery not related to drug abuse. The patient's brother also has hepatitis C and chronic kidney disease. The patient has a son who is in good health, a daughter who has hypothyroidism and sarcoidosis as well as another daughter who has migraines and hypothyroidism. SOCIAL HISTORY: The patient lives with her . 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 She smokes half a pack a day and has for most of her adult life. She has never used illicit drugs. She drinks alcohol rarely. Her surrogate decision maker will be her , Donnell Thorpe. REVIEW OF SYSTEMS: A 14-point review of systems is obtained and is negative except as above. PHYSICAL EXAM: General: The patient is a 57-year-old female, who appears stated age, who is sitting in the bed in moderate distress from pain. Vital signs upon examination, temperature 98.4, pulse rate 80, respiratory rate is 16 , oxygen saturation 95% on 3 L, blood pressure 144/73. HEENT: Head normocephalic, atraumatic. Sclerae anicteric. No conjunctival injection. Nasal mucosa moist. Oral mucosa moist. No pharyngeal erythema, discharge, or exudate. Neck: Supple, nontender. No lymphadenopathy. No carotid bruits auscultated. No JVD. Cardiac: Regular rate and rhythm. No clicks, murmurs, gallops or rubs. Pulses are 2+ in the bilateral dorsalis pedis, posterior tibial , and radial areas. No lower extremity edema or calf tenderness noted. Respiratory: Clear to auscultation bilaterally. No wheezes, rales, or rhonchi. Good air exchange bilaterally. Abdomen: Soft, nontender, nondistended. Bowel sounds are hypoactive, but present in all 4 quadrants. No hepatosplenomegaly. No abdominal bruits auscultated. Genitourinary: No suprapubic or CVA tenderness. Skin: Clean, dry, and intact. No rash. Left knee incision covered by bulky dressing. Extremities: The patient has pain throughout her left lower extremity. The patient has good pulses in her left foot. There is pain in the knee with any manipulation of the leg. The leg is not pale. Neuro: Cranial nerves II through XII intact. No focal deficits. Alert and oriented x3. Psychiatric: Pleasant and cooperative. LABORATORY DATA: Preoperatively shows white blood cell count 6.8, hemoglobin 13.5, hematocrit 40, MCV 86, platelet count 186. INR 0.79, PTT 29.3. Sodium 140, potassium 3.8, chloride 104, carbon dioxide 27, anion gap 9, BUN 12, creatinine 0.81, glucose 104. Hemoglobin A1c 6.6. Total bilirubin 0.6. Calcium 9.6. AST 24, ALT 28, alkaline phosphatase 81. Protein 12.3, albumin 4.4, globulin 2.9. LDL cholesterol 65, triglycerides 452, HDL cholesterol 36.7. TSH 9.13. ASSESSMENT AND PLAN: Ms. Thorpe is a 57-year-old female with past medical history significant for myocardial infarction, coronary artery disease, obstructive sleep apnea, peripheral vascular disease, who is status post left total knee arthroplasty. The patient has relatively uncontrolled pain, but otherwise has no complaints. 1. Postoperative state. Management per Ortho. Pain Control, at this point with Dilaudid, Flexeril, and tramadol. The patient states that the tramadol is ineffective, but given that it is known she is tolerant to it given her other narcotic intolerances, the patient will be encouraged to attempt to use it. If the patient is able to tolerate Dilaudid and gets good pain control from it, the patient will be sent home on oral Dilaudid if needed. PT and OT will monitor her hemoglobin and hematocrit. 2. History of myocardial infarction, coronary artery disease. The patient had stents placed in 2014. The patient, at this point, will be continued on her Effient and aspirin restarting tomorrow. The patient will continue on metoprolol and atorvastatin. The patient is not having chest pain at this time. The patient had cardiac stress test in 2017, which was read as low risk. 3. Hypertension. Continue the patient's metoprolol perioperatively. We will continue the patient's hydrochlorothiazide if indicated tomorrow. 4. Sleep apnea. The patient will use home CPAP while in the hospital. 5. Hypothyroidism. Continue levothyroxine at current dose. The patient should have this followed up with her outpatient provider, as on 11/12/17, her TSH was 9.13. The patient does not currently have symptoms from clinical hypothyroidism that are apparent. 6. Peripheral vascular disease. The patient is status post angioplasty. We will continue aspirin and Effient as well as atorvastatin. The patient is at increased risk for impaired blood flow to the left lower extremity in the surgical state. The patient has good pulses to her left foot. She will be monitored closely. The patient has pain throughout her leg, but it does not appear that she has compartment syndrome at this time. 7. DVT prophylaxis. Lovenox to warfarin per primary team. 8. FEN. The patient will have fluids running at 100 mL an hour at this time. The patient will have a heart-healthy diet without caffeine. 9. Code status. The patient will be a full code. The patient's surrogate decision maker will be her , Donnell Thorpe, as above. 10. Disposition. The patient is admitted inpatient, disposition per Orthopedics. TIME SPENT: Approximately 60 minutes was spent on this consultation, 30 of which was spent [id number] with the patient obtaining history and physical and discussing the treatment plan. This plan has been discussed with my attending, Dr. Kyung Guzman, and she is in agreement. ADDENDUM: While reviewing patient's laboratory data, her hemoglobin A1c from November 12 was available and was 6.6. This qualifies the patient for diagnosis of diabetes mellitus. The patient was educated on this and will have a Nutrition consult. The patient will also be started on fingerstick blood glucose monitoring and sliding scale lispro insulin while in the hospital to promote wound healing. This result should be followed up with patient's primary care provider as she is only into the diabetic range. The patient will be able to with a combination of weight loss and exercise and possibly oral medications be able to control her blood sugars. We will now start the patient on metformin in the postoperative state. COOPER CALLAWAY [id number]/CPS #: [id number]/CPS #: [id number] MONICA
[2017-12-17] MEDS: Docusate CAP* 100 MG PO SCH (21:48)
[2017-12-17] MEDS: traMADol TAB* 50 MG PO PRN (21:48)
[2017-12-17] MEDS: Magnesium Hydroxide LIQ* 30 ML UDC PO SCH (21:49)
[2017-12-17] MEDS: Metoprolol Tartrate TAB* 25 MG PO SCH (21:49)
[2017-12-18] MEDS: HYDROmorphone INJ* 2 MG/ML CARPUJECT SYRINGE IV SLOW PU PRN ×2 (00:24→04:41)
--- NOTE | 2017-12-18 01:09 | CONS ---
CONSULTATION REPORT: ADDENDUM: While reviewing patient's laboratory data, her hemoglobin A1c from November 12 was available and was 6.6. This qualifies the patient for diagnosis of diabetes mellitus. The patient was educated on this and will have a Nutrition consult. The patient will also be started on fingerstick blood glucose monitoring and sliding scale lispro insulin while in the hospital to promote wound healing. This result should be followed up with patient's primary care provider as she is only into the diabetic range. The patient will be able to with a combination of weight loss and exercise and possibly oral medications be able to control her blood sugars. We will now start the patient on metformin in the postoperative state. COOPER CALLAWAY [id number]/CPS #: [id number] MTDD
[2017-12-18] MEDS: ceFAZolin 1 GM in Dextrose (*) 1 GM/50 ML BAG IVPB SCH ×2 (02:34→10:11)
[2017-12-18] MEDS: traMADol TAB* 50 MG PO PRN (04:40)
[2017-12-18] MEDS ORDERED: Levothyroxine TAB* 125 MCG TAB PO SCH (06:00)
[2017-12-18 06:23] LABS: Hematocrit 31 % (35-47); Hemoglobin 10.7 g/dl (12.0-16.0); Mean Platelet Volume 8.5 um3 (7.4-10.4); Platelet Count 154 10^3/ul (150-450)
[2017-12-18 06:48] LABS: EGFR Non-African American 77.8 (>60)
[2017-12-18] MEDS ORDERED: oxyCODONE/Acetamin 5/325 MG* TAB ONE ×2 (08:18→12:12)
--- NOTE | 2017-12-18 08:53 | OP ---
DATE OF OPERATION: 12/17/17 - ROOM #348 DATE OF : 64 SURGEON: Kathrine Dyer MD STEAM ENGINEER: COOPER Burton. Jacob Arambula did help throughout the procedure with preparation of the leg, wound retraction, manipulation of the knee and wound closure. ANESTHESIOLOGIST: Dr. Dsouza. ANESTHESIA: General with adductor canal block. PRE-OP DIAGNOSIS: Severe end-stage degenerative osteoarthritis of the left knee joint. POST-OP DIAGNOSIS: Severe end-stage degenerative osteoarthritis of the left knee joint. OPERATIVE PROCEDURE: Left total knee arthroplasty. COMPLICATIONS: None. ESTIMATED BLOOD LOSS: 300 cc. TOURNIQUET TIME: 44 minutes. SPECIMEN: Bone and cartilage from left knee joint, sent to Pathology. HARDWARE USED: This is cemented Cint[employer] Nephew total knee hardware. Two packages of Simplex bone cement were used. For the femur, a size 5 narrow left posterior stabilized Legion femoral component, this is Oxinium. For the tibia, a size 3 left tibial baseplate Alissa II. For the insert, a 9 mm 3-4 posterior stabilized articular insert, for the patella 29, 3-peg all poly patella with 7.5 thickness. INDICATIONS: Ms. Thorpe is a 57-year-old female with years of increasingly severe left knee pain. She failed conservative treatment with antiinflammatory, pain medication, intraarticular injections, and physical therapy. Radiographs showed [id number] arthritis. Due to continued pain and decreased quality of life, she elected to undergo left total knee arthroplasty. Informed consent was obtained from the patient. She understood the risks of the surgery included, but were not limited to, bleeding, infection, damage to nearby structures, continued pain, need for further surgery, intraoperative fracture, nerve palsy, hardware failure or loosening, knee stiffness, loss of motion, stroke, heart attack, blood clot, and . She wished to proceed. INTRAOPERATIVE FINDINGS: Intraoperatively, the patient was noted to have tricompartmental full-thickness cartilage loss. DESCRIPTION OF PROCEDURE: Ms. Thorpe was identified in the preanesthesia unit. Her left lower extremity was marked as the correct operative side. Informed consent was signed and placed in the chart. The patient was taken to the operating room and placed under adductor nerve block with general anesthesia. A tourniquet was placed on the left thigh. Left lower extremity was prepped and draped in the usual sterile fashion. Preop time-out was made to correctly identify the patient, side, and site. Appropriate perioperative antibiotics were given within 1 hour of incision. Tourniquet was inflated and total tourniquet time for this procedure was 44 minutes. A 12-cm midline incision was made with a 10 blade and carried down to the extensor mechanism. A new 10 blade was used to make a standard medial parapatellar arthrotomy. The patella was subluxed laterally. Electrocautery was used to subperiosteally elevate the soft tissue off the superomedial tibia to the mid sagittal plane. The knee was flexed up. There was no ACL. Anterior horn of the lateral meniscus was released. A drill was used to enter the distal femur. Intramedullary distal femoral cutting guide was pinned on the distal femur. Oscillating saw was used to make the appropriate distal femoral cut. External rotation guide was pinned on the distal femur. Distal femur was sized to a size 5. Size 5 multi-cutting jig was pinned on the distal femur. Oscillating saw was used to make the appropriate 4 chamfer cuts. The PCL was completely released. The tibia was subluxed anteriorly. Extramedullary tibial cutting guide was pinned on the proximal tibia. Oscillating saw was used to make the proximal tibial cut perpendicular to the mechanical axis of the tibia. The bone was carefully removed. The knee was brought out into full extension. A spacer block had good fit with the knee in full extension. Medial and lateral ligaments were well balanced. Flexion and extension gaps were well balanced. The knee was flexed up. Lamina diamond grader was placed both medially and laterally. Any remaining meniscus was carefully removed using electrocautery. A curved osteotome was used to remove any posterior osteophytes. Tibial tray and drop delmer were placed and once again confirmed a satisfactory proximal tibial cut. A left size 5 narrow femoral trial was impacted on to the distal femur and had excellent fit. The box for the posterior stabilized implant was prepared using a reamer and box cut osteotome. A size 3 tibial tray trial with 9 mm insert trial was placed and the knee was taken through a range of motion. The knee had full extension, to 130 degrees of flexion. The patella was everted. 7 mm of patellar bone and cartilage were carefully removed using an oscillating saw. The patella was sized to a size 29. Three peg holes were drilled through the size 29 guide. A 29 patella with 7.5 thickness trial was placed and the knee was taken through a range of motion. There was satisfactory patellofemoral tracking. All trials were carefully removed. The tibia was subluxed anteriorly and sized to a size 3. Proximal tibia was prepared using a size 3 keel punch. All bony cut surfaces were copiously irrigated with sterile saline and dried. Final implants were cemented into place starting with the tibia, followed by the femur and last the patella. A 9 mm insert trial was placed while the knee was brought out to full extension. The tourniquet was turned down at 44 minutes. The knee was copiously irrigated with sterile saline. Electrocautery was used to obtain meticulous hemostasis. Once the cement had fully cured, the insert trial was removed. Any excess cement was removed from around the hardware and capsule. Final implant chosen was a 9 mm posterior stabilizer articular insert size 3/4. This was locked into position on the tibial tray. Stability of the insert was checked and rechecked and noted to be stable. The knee was once again copiously irrigated with sterile saline. The extensor mechanism was closed using interrupted #1 Vicryls with over a medium Hemovac drain. The rest of the incision was closed in a layered fashion using 0 and 2-0 Vicryls. Skin was closed using running 3-0 nylon suture. Sterile Xeroform, 4x4s , and Webril were used to cover the incision. Ender wrap and cold pack were placed over this. The patient's anesthesia was reversed without difficulty. She was taken to the PACU in stable condition. Intended weightbearing will be weightbearing as tolerated. Intended DVT prophylaxis will be Coumadin with a Lovenox bridge. [id number]/[facility] #: [id number] MONICA
[2017-12-18] MEDS ORDERED: Aspirin EC TAB* 81 MG TAB.EC PO SCH (09:00)
[2017-12-18] MEDS ORDERED: NON FORMULARY MED* (Hydrochlorothiazide [Hydrochlorothiazide] 12.5 MG) PO SCH (09:00)
[2017-12-18] MEDS ORDERED: Prasugrel (NF) 10 MG PO SCH (09:00)
[2017-12-18] MEDS: Insulin LISPRO* 1 UNITS UNIT SUBCUT SCH ×3 (09:39→16:02)
[2017-12-18] MEDS: Metoprolol Tartrate TAB* 25 MG PO SCH (10:11)
[2017-12-18] MEDS: Docusate CAP* 100 MG PO SCH (10:11)
[2017-12-18] MEDS: Magnesium Hydroxide LIQ* 30 ML UDC PO SCH (10:11)
[2017-12-18] MEDS ORDERED: Enoxaparin(*) 40 MG/0.4 ML SYR SUBCUT SCH (12:00)
[2017-12-18] MEDS ORDERED: oxyCODONE/Acetamin 5/325 MG* TAB PO PRN (12:16)
[2017-12-18] MEDS: oxyCODONE/Acetamin 5/325 MG* TAB PO PRN ×2 (12:23→16:28)
[2017-12-18] MEDS ORDERED: oxyCODONE TAB* 5 MG TAB ONE (14:30)
[2017-12-18] MEDS ORDERED: oxyCODONE TAB* 5 MG TAB PO ONE (14:33)
--- NOTE | 2017-12-18 14:38 | PN ---
Progress Note - Progress Note Date of Service: 12/18/17 SOAP: Subjective: 57 y/o female s/p L TKA by Dr. Dyer 12/17/2017. Patient having some difficulty with pain control, tolerating PErcocet well, advised to take with food. [place] with PT, eager for D/C this afternoon if does well with PT. VSS , afebrile overnight. Objective: General- Well appearing, NAD, AO Sitting in chair comfortably MSK- LLE- DF/PF = b/l, PT 2+, negative homans sign, SITLT, Surgical dressing intact, no drainage, odor noted, drain removed. no induration, erytehma around KEELY. Vital Signs Temp 97.6 F 12/18/17 07:23 Pulse 70 12/18/17 07:23 Resp 16 12/18/17 14:32 BP 134/70 12/18/17 07:23 Pulse Ox 98 12/18/17 07:23 Intake & Output 12/17/17 12/18/17 12/18/17 18:59 06:59 18:59 Intake Total 2700 2719 1850 Output Total 250 2100 700 Balance 2450 619 1150 Weight 109.316 kg Intake: IV Fluids 2700 959 905 LR 2700 959 905 IVPB 110 105 ABX - CEFAZOLIN 110 105 Oral 1650 840 Output: Urine 400 700 Cavazos 250 1700 Other: # Bowel Movements 1 Estimated Stool Amount Medium Assessment: Stable 57 y/o female s/p L TKA by Dr. Dyer 12/17/2017. Plan: - DVT prophylaxis- lovenox in house, resume antiplt Effient, ASA 325mg BID for DVT at home. - Continue PT/ OT - Follow up with Dr. Dyer within 10-14 days - H&H - stable - post-op IV ABX - completed - Elevated H A1C. Discussed with patient, has h/o being borderline DM, will follow up with PCP. POC Glucose testing in house 120-160's - Possible D/C to home today if works well with PT, meds sent. Acetaminophen (Tylenol Tab*) 650 mg PO Q4H PRN PRN Reason: PAIN OR TEMPERATURE Albuterol (Ventolin 2.5 Mg/3 Ml Neb.Joseline*) 2.5 mg INH Q4H PRN PRN Reason: SOB/WHEEZING Aspirin (Aspirin Ec Tab*) 81 mg PO DAILY [facility] Last Admin: 12/18/17 10:11 Dose: 81 mg Atorvastatin Calcium (Lipitor*) 80 mg PO QPM [facility] Last Admin: 12/17/17 18:06 Dose: 80 mg Bisacodyl (Dulcolax Supp*) 10 mg [place] DAILY PRN PRN Reason: constipation Cyclobenzaprine HCl (Flexeril Tab*) 10 mg PO TID PRN PRN Reason: SPASMS Last Admin: 12/18/17 00:23 Dose: 10 mg Dextrose (D50w Syringe 50 Ml*) 12.5 gm IV PUSH .FOR FS < 60 - SS PRN PRN Reason: FS < 60 Diphenhydramine HCl (Benadryl Iv*) 25 mg IV Q6H PRN PRN Reason: itching Diphenhydramine HCl (Benadryl Po*) 25 mg PO Q6H PRN PRN Reason: itching or sleep Docusate Sodium (Colace Cap*) 100 mg PO BID [facility] Last Admin: 12/18/17 10:11 Dose: 100 mg Enoxaparin Sodium (Lovenox(*)) 40 mg SUBCUT Q24H [facility] Last Admin: 12/18/17 12:20 Dose: 40 mg Hydromorphone HCl (Dilaudid Inj*) 0.5 mg IV SLOW PU Q2H PRN PRN Reason: PAIN - BREAKTHROUGH Hydromorphone HCl (Dilaudid Inj*) 1 mg IV SLOW PU Q2H PRN PRN Reason: PAIN - UNRELIEVED Last Admin: 12/18/17 04:41 Dose: 1 mg Lactated Ringer's (Lactated Ringers 1000 Ml Bag*) 1,000 mls @ 100 mls/hr IV PER RATE [facility] Last Admin: 12/18/17 00:30 Dose: 100 mls/hr Insulin Human Lispro (Humalog*) 0 units SUBCUT [facility] PRN Reason: Protocol Last Admin: 12/18/17 13:01 Dose: Not Given Lactulose (Lactulose*) 30 ml PO Q6H PRN PRN Reason: constipation Levothyroxine Sodium (Synthroid Tab*) 125 mcg PO 0600 [facility] Last Admin: 12/18/17 05:54 Dose: 125 mcg Magnesium Hydroxide (Milk Of Magnesia Liq*) 30 ml PO BID [facility] Last Admin: 12/18/17 10:11 Dose: 30 ml Magnesium Hydroxide (Milk Of Magnesia Liq*) 30 ml PO Q6H PRN PRN Reason: constipation Metoprolol Tartrate (Lopressor Tab*) 25 mg PO BID [facility] Last Admin: 12/18/17 10:11 Dose: 25 mg Nitroglycerin (Nitroglycerin Tab 0.3 Mg*) 0.3 mg SL Q5M PRN PRN Reason: ANGINA Ondansetron HCl (Zofran Inj*) 4 mg IV Q6H PRN PRN Reason: nausea Ondansetron HCl (Zofran Tab*) 4 mg PO Q6H PRN PRN Reason: NAUSEA Oxycodone/Acetaminophen (Percocet 5/325 Tab*) 1 tab PO Q4H PRN PRN Reason: PAIN Oxycodone/Acetaminophen (Percocet 5/325 Tab*) 2 tab PO Q4H PRN PRN Reason: MORE PAIN Last Admin: 12/18/17 12:23 Dose: 2 tab Polyethylene Glycol/Electrolytes (Miralax*) 17 gm PO DAILY PRN PRN Reason: Constipation Prasugrel (Effient (Nf)) 10 mg PO QAM [facility] Tramadol HCl (Ultram*) 50 mg PO QID PRN PRN Reason: PAIN Last Admin: 12/18/17 04:40 Dose: 50 mg Trazodone HCl (Desyrel Tab*) 25 mg PO BEDTIME PRN PRN Reason: insomnia Laboratory Results - last 24 hr 12/17/17 12/18/17 12/18/17 16:45 05:43 05:43 Hgb 10.7 L Hct 31 L Plt Count 154 MPV 8.5 Sodium 135 L Potassium 4.6 Chloride 104 Carbon Dioxide 29 Anion Gap 2 BUN 12 Creatinine 0.77 Est GFR ( Amer) 100.1 Est GFR (Non-Af Amer) 77.8 BUN/Creatinine Ratio 15.6 Glucose 131 H POC Glucose (mg/dL) 164 H Calcium 9.1 12/18/17 12/18/17 08:26 12:21 Hgb Hct Plt Count MPV Sodium Potassium Chloride Carbon Dioxide Anion Gap BUN Creatinine Est GFR ( Amer) Est GFR (Non-Af Amer) BUN/Creatinine Ratio Glucose POC Glucose (mg/dL) 122 H 124 H Calcium
[2017-12-18 16:02] VITALS: BP 127/63
--- NOTE | 2017-12-18 17:55 | PN ---
Subjective Date of Service: 12/18/17 Interval History: Patient was seen and examined earlier this AM. Reports doing very well overall. She has some L knee pain, but was able to get up and bear weight. Cavazos was discontinued, PAMELA drain removed by earlier today. Denies any chest pain , palpitations, dyspnea or SOB. She tells me that she has a known glucose intolerance issues, to be addressed by PCP. She wishes to eat healthier, exercise and lose weight, so she doesn't need to take DM meds. Family History: Unchanged from Admission Social History: Unchanged from Admission Past Medical History: Unchanged from Admission Objective Active Medications: Acetaminophen (Tylenol Tab*) 650 mg PO Q4H PRN PRN Reason: PAIN OR TEMPERATURE Albuterol (Ventolin 2.5 Mg/3 Ml Neb.Joseline*) 2.5 mg INH Q4H PRN PRN Reason: SOB/WHEEZING Aspirin (Aspirin Ec Tab*) 81 mg PO DAILY [facility] Last Admin: 12/18/17 10:11 Dose: 81 mg Atorvastatin Calcium (Lipitor*) 80 mg PO QPM [facility] Last Admin: 12/17/17 18:06 Dose: 80 mg Bisacodyl (Dulcolax Supp*) 10 mg MS DAILY PRN PRN Reason: constipation Cyclobenzaprine HCl (Flexeril Tab*) 10 mg PO TID PRN PRN Reason: SPASMS Last Admin: 12/18/17 00:23 Dose: 10 mg Dextrose (D50w Syringe 50 Ml*) 12.5 gm IV PUSH .FOR FS < 60 - SS PRN PRN Reason: FS < 60 Diphenhydramine HCl (Benadryl Iv*) 25 mg IV Q6H PRN PRN Reason: itching Diphenhydramine HCl (Benadryl Po*) 25 mg PO Q6H PRN PRN Reason: itching or sleep Docusate Sodium (Colace Cap*) 100 mg PO BID [facility] Last Admin: 12/18/17 10:11 Dose: 100 mg Enoxaparin Sodium (Lovenox(*)) 40 mg SUBCUT Q24H [facility] Last Admin: 12/18/17 12:20 Dose: 40 mg Hydromorphone HCl (Dilaudid Inj*) 0.5 mg IV SLOW PU Q2H PRN PRN Reason: PAIN - BREAKTHROUGH Hydromorphone HCl (Dilaudid Inj*) 1 mg IV SLOW PU Q2H PRN PRN Reason: PAIN - UNRELIEVED Last Admin: 12/18/17 04:41 Dose: 1 mg Lactated Ringer's (Lactated Ringers 1000 Ml Bag*) 1,000 mls @ 100 mls/hr IV PER RATE [facility] Last Admin: 12/18/17 00:30 Dose: 100 mls/hr Insulin Human Lispro (Humalog*) 0 units SUBCUT [facility] PRN Reason: Protocol Last Admin: 12/18/17 16:02 Dose: Not Given Lactulose (Lactulose*) 30 ml PO Q6H PRN PRN Reason: constipation Levothyroxine Sodium (Synthroid Tab*) 125 mcg PO 0600 [facility] Last Admin: 12/18/17 05:54 Dose: 125 mcg Magnesium Hydroxide (Milk Of Magnesia Liq*) 30 ml PO BID [facility] Last Admin: 12/18/17 10:11 Dose: 30 ml Magnesium Hydroxide (Milk Of Magnesia Liq*) 30 ml PO Q6H PRN PRN Reason: constipation Metoprolol Tartrate (Lopressor Tab*) 25 mg PO BID [facility] Last Admin: 12/18/17 10:11 Dose: 25 mg Nitroglycerin (Nitroglycerin Tab 0.3 Mg*) 0.3 mg SL Q5M PRN PRN Reason: ANGINA Ondansetron HCl (Zofran Inj*) 4 mg IV Q6H PRN PRN Reason: nausea Ondansetron HCl (Zofran Tab*) 4 mg PO Q6H PRN PRN Reason: NAUSEA Oxycodone/Acetaminophen (Percocet 5/325 Tab*) 1 tab PO Q4H PRN PRN Reason: PAIN Oxycodone/Acetaminophen (Percocet 5/325 Tab*) 2 tab PO Q4H PRN PRN Reason: MORE PAIN Last Admin: 12/18/17 16:28 Dose: 2 tab Polyethylene Glycol/Electrolytes (Miralax*) 17 gm PO DAILY PRN PRN Reason: Constipation Prasugrel (Effient (Nf)) 10 mg PO QAM [facility] Tramadol HCl (Ultram*) 50 mg PO QID PRN PRN Reason: PAIN Last Admin: 12/18/17 04:40 Dose: 50 mg Trazodone HCl (Desyrel Tab*) 25 mg PO BEDTIME PRN PRN Reason: insomnia Vital Signs - 8 hr 12/18/17 12/18/17 12/18/17 11:29 12:23 13:16 Temperature 98.9 F Pulse Rate 63 Respiratory 16 16 16 Rate Blood Pressure 112/54 (mmHg) O2 Sat by Pulse 85 Oximetry 12/18/17 12/18/17 12/18/17 14:30 14:32 15:35 Temperature 98.5 F Pulse Rate 68 Respiratory 15 16 18 Rate Blood Pressure 127/63 (mmHg) O2 Sat by Pulse 91 Oximetry 12/18/17 12/18/17 16:02 16:28 Temperature Pulse Rate Respiratory 14 16 Rate Blood Pressure (mmHg) O2 Sat by Pulse Oximetry Oxygen Devices in Use Now: None Appearance: Sitting on her bed, eating breakfast, appears comfortable and in NAD Eyes: No Scleral Icterus, PERRLA Ears/Nose/Mouth/Throat: Clear Oropharnyx, Mucous Membranes Moist Neck: NL Appearance and Movements; NL JVP, Trachea Midline Respiratory: Symmetrical Chest Expansion and Respiratory Effort, Clear to Auscultation Cardiovascular: NL Sounds; No Murmurs; No JVD, RRR Abdominal: NL Sounds; No Tenderness; No Distention Lymphatic: No Cervical Adenopathy Extremities: No Edema, No Clubbing, Cyanosis - Left knee with clean KEELY dressing , no distal Neurological: Alert and Oriented x 3, NL Sensation, NL Muscle Strength and Tone Nutrition: Taking PO's Result Diagrams: 12/18/17 05:43 12/18/17 05:43 Additional Lab and Data: . Microbiology and Other Data: . Diagnostic Imaging: . EKG Data: . Assess/Plan/Problems-Billing Assessment: A 57 y/o female with PMH significant for CAD, IA, HTN, Sleep apnea and glucose intolerance, who is POD#1, s/p left total knee arthroplasty, clinically stable and likely to be discharged to home later today. - Patient Problems (1) Total knee replacement status Current Visit: Yes Status: Acute Priority: High Comment: - Management per ortho - PT today, likely d/c to home if tolerated - Pain well controlled now (2) CAD (coronary artery disease) Current Visit: No Status: Chronic Comment: - Will resume ASA and Effient starting today - Ortho to determine if additional coverage for DVT prophylaxis is needed - Continue Metoprolol and Atrovastatin - No complaints of chest pain (3) History of obstructive sleep apnea Current Visit: No Status: Chronic Comment: - Stable - Continue C-PAP as directed at home (4) Hx of myocardial infarction Current Visit: Yes Status: Acute Comment: - Continue ASA, Effient, statin and Metoprolol (5) Glucose intolerance (impaired glucose tolerance) Current Visit: Yes Status: Chronic Comment: - Hg A1c continues to rise since 2015 - Advised to F/U with PCP to discuss possible oral hyperglycemics meds if indicated - POC blood glucose has been well under control (6) Hypothyroid Current Visit: No Status: Chronic Comment: - Continue Levothyroxin (7) DVT prophylaxis Current Visit: No Status: Acute Comment: - Lovenox to Coumadin for bridging per ortho team (8) Full code status Current Visit: Yes Status: Acute Status and Disposition: Inpatient for PT/OT and pain control. Anticipate discharge per ortho team when stale.
[2017-12-18] MEDS: Atorvastatin* 80 MG TAB PO SCH (17:56)
[2017-12-19] MEDS ORDERED: PRASUGREL 10 MG PO SCH (09:00)
--- NOTE | 2017-12-19 09:11 | DS ---
DISCHARGE SUMMARY: DATE OF ADMISSION: 12/17/17 DATE OF DISCHARGE: 12/18/17 ATTENDING PHYSICIAN: Dr. Kathrine Dyer.* (DICTATED BY COOPER ARSHAD) CHIEF COMPLAINT: 1. Left knee pain. 2. History of [place] in 2014. 3. Coronary artery disease. 4. History of sleep apnea. 5. GERD. 6. Hypothyroidism. 7. Peripheral vascular disease. DISCHARGE DIAGNOSES: 1. Left total knee arthroplasty, uncomplicated. 2. History of [place] in 2014. 3. Coronary artery disease. 4. Sleep apnea. 5. GERD. 6. Hypothyroidism. 7. Peripheral vascular disease. PROCEDURE: Left total knee arthroplasty. CONSULTATIONS: 1. Physical Therapy. 2. Occupational Therapy. 3. Hospitalist. BRIEF HISTORY: Mrs. Thorpe is a very pleasant 57-year-old female with severe end - stage degenerative osteoarthritis, who failed conservative treatment and has elected to undergo left total knee arthroplasty by Dr. Kathrine Dyer on 12/17/17. HOSPITAL COURSE: Mrs. Thorpe was admitted to [facility] on 12/17/17 where she underwent an uncomplicated left total knee arthroplasty. She recovered on the surgical short-stay unit. Her Cavazos was removed on postoperative day 1 and she was voiding on her own without difficulty. Her pain was controlled with p.o. Percocet and she does not have any GI side effects to this as she has had in the past. Her labs and vital signs remained stable. She is able to weight bear as tolerated on the left lower extremity and advanced appropriately with physical therapy and occupational therapy. Her DVT prophylaxis was managed with Lovenox in house and will be managed with Effient and aspirin 325 b.i.d. as an outpatient. By postoperative day 1, she was orthopedically and medically stable for discharge to go home with home services. PHYSICAL EXAMINATION: General: Well appearing, in no acute distress. Alert and oriented. Sitting in the chair comfortably. Vital Signs: Temperature 97.6 , pulse 70, respirations 16, blood pressure 134/70, pulse oxygenation 98% on room air. Musculoskeletal: Examination of the left lower extremity showed positive dorsiflexion and plantarflexion that was equal bilaterally with posterior tibial pulses 2+ on the left hand side. Negative Homans sign. Sensation intact to light touch. Surgical dressing was intact with no drainage or odor noted. Drain had been removed by Dr. Dyer early that morning. No induration or erythema around the Ender bandage itself. LABORATORY DATA ON DISCHARGE: Include an H and H of 10.7 and 31. Glucose measurements ranged from 120s to 160s. DISCHARGE MEDICATIONS: Include: 1. Aspirin 325 mg p.o. b.i.d. x1 month. 2. Lipitor 80 mg p.o. q.p.m. 3. Flexeril 10 mg p.o. t.i.d. p.r.n. for muscle spasms. 4. Colace 100 mg p.o. b.i.d. 5. Hydrochlorothiazide 12.5 mg p.o. q.a.m. 6. Synthroid 125 mcg p.o. daily. 7. Lopressor 25 mg p.o. b.i.d. 8. Nitrostat 0.3 mg sublingually p.r.n. for chest pain. 9. Percocet 1 to 2 tablets every 4 to 6 hours as needed for pain. 10. Effient 10 mg p.o. q.a.m. 11. Tramadol 50 mg p.o. 4 times daily p.r.n. for mild to moderate pain. CONDITION ON DISCHARGE: Stable. DISCHARGE INSTRUCTIONS: Mrs. Thorpe is a very pleasant 67-year-old female postoperative day 1, status post left total knee arthroplasty, which was uncomplicated. She is orthopedically and medically stable for discharge and will go home with home services. She will start her home medications as she will take aspirin 325 mg p.o. b.i.d. for DVT prophylaxis. She will continue with physical therapy and have home PT. She will remain weightbearing as tolerated on the left lower extremity. She will take Ultram as needed for mild- to-moderate pain and Percocet for more severe pain. She was found to have an elevated hemoglobin A1c and will follow up with her primary doctor as she has been diagnosed with borderline diabetes in the past for possible medicinal treatment. She was instructed to go immediately to the ER should she develop chest pain or shortness of breath. Should she develop fever, increasing pain or redness around the incision site, she is to call the office immediately. She will follow up with Dr. Dyer in approximately 10 to 14 days for incision check and suture removal. COOPER ARSHAD [id number]/[facility] #: [id number] MONICA
[2017-12-20] MEDS ORDERED: Scopolamine PATCH Remove* 1 NOTE MISC PATCH OFF ONE (10:38)
== END 2017-12-18 18:25 | disposition home health service (06) | DRG 302 ==
LOC: AA 07:58 → SSU 14:27
PROVIDERS: ADMIT Orthopaedic Surgery Adult Reconstructive Orthopaedic Surgery; ATTEND Orthopaedic Surgery Adult Reconstructive Orthopaedic Surgery
PROC: 0SRD069 Replacement of Left Knee Joint with Oxidized Zirconium on Polyethylene Synthetic Substitute, Cemented, Open Approach (ICD-10-PCS; principal; 2017-12-17 10:00)
DX: M17.12 Unilateral primary osteoarthritis, left knee (principal); Z68.41 Body mass index [BMI] 40.0-44.9, adult; I25.10 Atherosclerotic heart disease of native coronary artery without angina pectoris; K21.9 Gastro-esophageal reflux disease without esophagitis; E03.9 Hypothyroidism, unspecified; I73.9 Peripheral vascular disease, unspecified; R73.03 Prediabetes; F17.210 Nicotine dependence, cigarettes, uncomplicated; E66.01 Morbid (severe) obesity due to excess calories; G43.909 Migraine, unspecified, not intractable, without status migrainosus; G47.33 Obstructive sleep apnea (adult) (pediatric); J44.9 Chronic obstructive pulmonary disease, unspecified; I10 Essential (primary) hypertension; K58.9 Irritable bowel syndrome, unspecified; M25.762 Osteophyte, left knee; I25.2 Old myocardial infarction; Z79.02 Long term (current) use of antithrombotics/antiplatelets; Z90.49 Acquired absence of other specified parts of digestive tract; Z95.5 Presence of coronary angioplasty implant and graft; Z88.5 Allergy status to narcotic agent; Z82.49 Family history of ischemic heart disease and other diseases of the circulatory system; Z98.51 Tubal ligation status; Z80.3 Family history of malignant neoplasm of breast; Z83.49 Family history of other endocrine, nutritional and metabolic diseases; Z84.1 Family history of disorders of kidney and ureter; Z72.89 Other problems related to lifestyle; Z82.3 Family history of stroke
CPT/HCPCS: 36415; 80048; 85014; 85018; 85049; 88305; 88311; A9270-GY; C1776; J0330; J0690; J1170; J1650; J2250; J2405; J3010

== ENCOUNTER → 2019-07-21 05:42 | Day surgery (SDC) | payer BC ==
--- NOTE | 2019-07-13 15:12 | HP ---
HISTORY AND PHYSICAL: DATE OF ADMISSION/SURGERY: 07/21/19 DATE OF OFFICE VISIT: 07/13/19 SURGEON: Kathrine Dyer MD * (DICTATED BY COOPER ANGULO) PROCEDURE: Right knee arthroscopy with partial meniscectomy, possible chondroplasty, possible synovectomy, and possible plica excision. CHIEF COMPLAINT: Right knee pain. HISTORY OF PRESENT ILLNESS: Ms. Thorpe is a 59-year-old female with continued complaints of right knee pain. She has failed conservative treatment and elected to proceed with the right knee arthroscopy. PAST MEDICAL HISTORY: Sleep apnea, hypertension, prior [place], hypothyroidism, and peripheral vascular disease. PAST SURGICAL HISTORY: Left total knee arthroplasty, cardiac stents, cholecystectomy, left foot surgery, x3, and a left lower extremity angioplasty. CURRENT MEDICATIONS: 1. Atorvastatin calcium 80 mg q.h.s. 2. Nitrostat as needed. 3. Aspirin 81 mg daily. 4. Levothyroxine 125 mcg a day. 5. Hydrochlorothiazide 12.5 mg a day. 6. Fenofibrate 54 mg a day. ALLERGIES: To MORPHINE. FAMILY HISTORY: Coronary artery disease, breast cancer, and stroke. SOCIAL HISTORY: She is a 59-year-old female, she lives with her . She smokes a half a pack a day. Denies the use of drugs. Uses occasional alcohol. REVIEW OF SYSTEMS: A complete 14-point review of systems was reviewed with the patient, positive for hypothyroidism and GERD. She denies history of DVT, PE, hepatitis, HIV, or anesthesia problems. PHYSICAL EXAMINATION GENERAL: She is well developed, well nourished, in no acute distress. VITAL SIGNS: She stands 5 feet 4 inches tall, weighs 241 pounds. Blood pressure is 132/67, heart rate 76. HEENT: Normocephalic, atraumatic. NECK: Supple. No palpable lymph nodes. CARDIO: Regular rate and rhythm. Strong S1, S2. ABDOMEN: Soft, nontender, nondistended. NEUROLOGICAL: She is alert and oriented x3. MUSCULOSKELETAL: Right lower extremity: The skin is intact. There are no open wounds or abrasions. There is some moderate effusion of the right knee joint. She has some tenderness along the medial joint line. Positive Ana Maria' s. Positive Apley's. Negative Ramona's. Range of motion is 10 to 120 degrees of flexion. She is able to dorsiflex and plantarflex and has 2+ dorsalis pedis pulse. ASSESSMENT AND PLAN: Ms. Thorpe is a 59-year-old female with complaints of right knee pain and MRI confirms a medial meniscus tear. She has elected to proceed with the right knee arthroscopy with partial meniscectomy, possible chondroplasty, possible synovectomy, and possible plica excision. The surgery is scheduled for 07/21/[address] Dyer discussed the risks and benefits of the surgery at today's visit and all of her questions were answered. She will follow up with Dr. Dyer 2 weeks after the surgery. COOPER ANGULO [id number]/[facility] #: [id number] MTDD
[~2019-07-21 05:42] MED LIST changes: +Acetaminophen IV 1GM/100ML * 100 ML ONE; -Buffered Lidocaine 0.9% SYRIN* 5 ML/SYR SYRINGE INTRADERM ONE; +Buffered Lidocaine 1% SYRIN* 1 ML/SYRINGE INTRADERM ONE; +Bupivacaine 0.5%* 50 ML MDV VIAL ONE; +Dexamethasone TAB* 4 MG ONE; +Dexamethasone TAB* 4 MG PO ONE; +DiMENhydriNATE IV* 50 MG/ML VIAL IV PUSH PRN; +DiMENhydriNATE IV* 50 MG/ML VIAL ONE; +EPINEPHRINE 1 MG/ML 1 ML VIAL ONE; +Famotidine IV* 10 MG/ML 2 ML (20 mg) IV ONE; +HYDROmorphone INJ* 0.5 MG/0.5 ML SYRINGE IV PRN; +HYDROmorphone INJ1* 1 MG/ML SYRINGE ONE; +KETAMINE HCL* 50 MG/ML 10 ML VIAL ONE; +Ketorolac INJ* 30 MG/ML 1 ML VIAL ONE; +Lactated Ringers 1000 ML Bag* 1,000 ML IV SCH; +Lidocaine 2% PF * 5 ML VIAL ONE; +Midazolam* 1 MG/ML 5 ML VIAL (5 MG) ONE; +Naloxone* 0.4 MG/ML 1 ML VIAL IV PRN; +Ondansetron ODT TAB* 4 MG ONE; +Ondansetron ODT TAB* 4 MG PO ONE; +PROCHLORPERAZINE INJ 5 MG/ML 2 ML VIAL IV PRN; +Phenylephrine 40 MCG/ML SYRINGE ONE; +Propofol* 10 MG/ML 20 ML BTL ONE; +fentaNYL* 50 MCG/ML 2 ML VIAL (100 MCG VIAL) ONE; +methylPREDNISolone ACETATE 80* 80 MG/ML 1 ML VIAL ONE; +oxyCODONE TAB* 5 MG TAB PO PRN
[2019-07-21] MEDS: HYDROmorphone INJ1* 1 MG/ML SYRINGE IV PRN ×5 (08:38→08:54)
[2019-07-21] MEDS: fentaNYL* 50 MCG/ML 2 ML VIAL (100 MCG VIAL) IV PRN ×5 (08:48→09:10)
[2019-07-21 11:14] VITALS: BP 147/52
--- NOTE | 2019-07-22 09:55 | OP ---
DATE OF OPERATION: 07/21/19 - [facility] DATE OF : 64 ATTENDING SURGEON: Kathrine Dyer MD TANK INSULATOR RUBBER: COOPER Jorge. Ms. Galdamez did help throughout the procedure with preparation of the leg, wound retraction, manipulation of the knee and wound closure. ANESTHESIOLOGIST: Dr. Sequeira ANESTHESIA: General. PRE-OP DIAGNOSES: Right knee medial meniscal tear, [id number] osteoarthritis. POST-OP DIAGNOSES: Right knee medial meniscal tear, lateral meniscal tear, [id number] degenerative osteoarthritis. OPERATIVE PROCEDURE: Right knee arthroscopy with partial medial meniscectomy, partial lateral meniscectomy, patellofemoral chondroplasty. COMPLICATIONS: None. SPECIMEN: None. ESTIMATED BLOOD LOSS: Less than 25 cc. BRIEF HISTORY/INDICATIONS: Ms. Thorpe is a 59-year-old female who developed acute onset of knee pain in February. She had mechanical symptoms and difficulty pivoting and twisting. Conservative treatment failed her and she had meniscal tear concerned on MRI. The patient wished to proceed with knee arthroscopy and partial meniscectomy due to continued pain and decreased quality of life. Informed consent was obtained from the patient. She understands the risks of surgery includes, but are not limited to bleeding, infection, damage to nearby structures, continued pain, need for further surgery, re-tear of the meniscus, progression of arthritis, stroke, heart attack, blood clot, and . She wished to proceed. INTRAOPERATIVE FINDINGS: Intraoperatively, the patient was noted to have a linear tear in the posterior one third of the medial meniscus in the red-white and red-red zone. She had a radial tear in the posterior horn of the lateral meniscus. She had grade 3 and 4 Outerbridge cartilage changes above the medial and patellofemoral compartments. Patellofemoral compartment had cartilage fraying and flapping with exposed subchondral bone. DESCRIPTION OF PROCEDURE: Ms. Thorpe was identified in the preanesthesia unit. Her right lower extremity was marked as the correct operative site. Informed consent was signed and placed in the chart. The patient was taken in to the operating room and placed under anesthesia without difficulty. Right lower extremity was prepped and draped in the usual sterile fashion. Preop time-out was made to correctly identify the patient's side and site. Appropriate perioperative antibiotics were given to the patient within 1 hour of incision. A standard 0.5 cm anterolateral portal incision was made with a 10-blade and carried down to the capsule. Trocar was introduced. As soon as the light and water sources were turned on, there was immediate visualization of the suprapatellar pouch. A tour of the knee joint was performed. Suprapatellar pouch showed some small piece of cartilage, but otherwise no abnormality. Patellofemoral compartments show cartilage fraying and flapping. There was exposed subchondral bone. This is advanced arthritis with grade 3 and 4 Outerbridge cartilage changes. The medial gutter showed no loose body or plica. The medial compartment showed an anteriorly displaced linear tear on the posterior medial meniscus. Medial femoral condyle had grade 3 and 4 Outerbridge cartilage changes as well with exposed subchondral bone. ACL and PCL appeared to be intact. The knee placed in the [id number] position. Lateral compartment has minimal degenerative changes. There was a radial tear along the posterior horn of the lateral meniscus in the red- white zone. Lateral gutter showed no loose body or plica. Under direct visualization, a medial portal incision was made. A probe was introduced, then a second tour of the knee joint was performed. Shaver and radiofrequency ablation wand were used to perform chondroplasty in the patello- femoral compartment. Frayed and flapping cartilage were carefully smoothed. The chondroplasty was conservative in order to preserve any remaining cartilage. Next, a straight biter and shaver were used to perform partial medial meniscectomy, mainly at the red-white zone of the posterior third of the medial meniscus. A smooth border of the meniscus was obtained. The entire tear was excised. Further probing of the meniscus showed no additional tears. The knee was placed in the [id number] position. Shaver and radiofrequency ablation wand were used to excise radial tear along the posterolateral horn of the lateral meniscus. A smooth border of the lateral meniscus was changed. Further probing of the lateral meniscus showed no additional tears. The knee was copiously irrigated with sterile saline. All instruments were removed. Incisions were closed using 3-0 nylon suture. Sterile Xeroform, 4x4s , and Webril were used to cover the incision. Ender wrap and cold pack were placed over this. The patient's anesthesia was reversed without difficulty. She was taken to the PACU in stable condition. She will be weightbearing as tolerated and activities as tolerated. She will have a 2-week followup appointment for suture removal. She will use aspirin for DVT prophylaxis. [id number]/[facility] #: [id number] MONICA
== END | disposition home or self-care (01) ==
LOC: OR 05:42
PROVIDERS: ATTEND Orthopaedic Surgery Adult Reconstructive Orthopaedic Surgery
DX: S83.241A Other tear of medial meniscus, current injury, right knee, initial encounter (principal); S83.281A Other tear of lateral meniscus, current injury, right knee, initial encounter; X58.XXXA Exposure to other specified factors, initial encounter; Y92.9 Unspecified place or not applicable; F17.210 Nicotine dependence, cigarettes, uncomplicated; G47.33 Obstructive sleep apnea (adult) (pediatric); I10 Essential (primary) hypertension; I25.2 Old myocardial infarction; E03.9 Hypothyroidism, unspecified; I73.9 Peripheral vascular disease, unspecified; Z95.5 Presence of coronary angioplasty implant and graft; I25.10 Atherosclerotic heart disease of native coronary artery without angina pectoris
CPT/HCPCS: A9270-GY; J1040; J1170; J1240; J1885; J2250; J2704; J3010; J3490; J8540

== ENCOUNTER 2023-09-29 07:40 | Observation (INO) ==
[~2023-09-29 07:40] MED LIST changes: -Acetaminophen IV 1GM/100ML * 100 ML ONE; -Buffered Lidocaine 1% SYRIN* 1 ML/SYRINGE INTRADERM ONE; -Bupivacaine 0.5%* 50 ML MDV VIAL ONE; -Dexamethasone TAB* 4 MG ONE; -Dexamethasone TAB* 4 MG PO ONE; -DiMENhydriNATE IV* 50 MG/ML VIAL IV PUSH PRN; -DiMENhydriNATE IV* 50 MG/ML VIAL ONE; -EPINEPHRINE 1 MG/ML 1 ML VIAL ONE; -Famotidine IV* 10 MG/ML 2 ML (20 mg) IV ONE; +HYDROmorphone 1 MG/1 ML SYRINGE IV PRN; -HYDROmorphone INJ* 0.5 MG/0.5 ML SYRINGE IV PRN; -HYDROmorphone INJ1* 1 MG/ML SYRINGE ONE; -KETAMINE HCL* 50 MG/ML 10 ML VIAL ONE; -Ketorolac INJ* 30 MG/ML 1 ML VIAL ONE; -Lactated Ringers 1000 ML Bag* 1,000 ML IV SCH; -Lidocaine 2% PF * 5 ML VIAL ONE; -Midazolam* 1 MG/ML 5 ML VIAL (5 MG) ONE; +Naloxone 0.4 mg VIAL 0.4 mg/ml 1 ml VIAL IV PRN; -Naloxone* 0.4 MG/ML 1 ML VIAL IV PRN; +Ondansetron 4 mg VIAL 2 MG/ML 2 ml VIAL IV PRN; -Ondansetron ODT TAB* 4 MG ONE; -Ondansetron ODT TAB* 4 MG PO ONE; -PROCHLORPERAZINE INJ 5 MG/ML 2 ML VIAL IV PRN; -Phenylephrine 40 MCG/ML SYRINGE ONE; -Propofol* 10 MG/ML 20 ML BTL ONE; -fentaNYL* 50 MCG/ML 2 ML VIAL (100 MCG VIAL) ONE; -methylPREDNISolone ACETATE 80* 80 MG/ML 1 ML VIAL ONE; -oxyCODONE TAB* 5 MG TAB PO PRN
[2023-09-29] MEDS ORDERED: ceFAZolin 2 GM PREMIX 2 GM/50 ML BAG ONE (08:28)
[2023-09-29] MEDS ORDERED: Tranexamic Acid 1 GM/100ML BAG 2,000 MG/200 ML BAG IV ONE (08:28)
[2023-09-29] MEDS ORDERED: Buffered Lidocaine 1% SYRIN 1 ml ONE (08:28)
[2023-09-29 08:33] LABS: Rapid COVID-19 Molecular Undetected (Undetected)
[2023-09-29] MEDS ORDERED: Lidocaine 2% PF 5 ML VIAL ONE (08:39)
[2023-09-29] MEDS ORDERED: Propofol 10 MG/ML 20 ML BTL ONE (08:39)
[2023-09-29] MEDS ORDERED: KETAMINE HCL 10 MG/ML 20 ml VIAL (200 MG) ONE (08:46)
[2023-09-29] MEDS: Lactated Ringers 1000 ml BAG 1,000 ML IV SCH ×2 (08:57→16:44)
[2023-09-29] MEDS: Buffered Lidocaine 1% SYRIN 1 ml INTRADERM ONE (08:57)
[2023-09-29] MEDS ORDERED: Dexamethasone IV 4 MG/ML VIAL 1 ml VIAL ONE (10:06)
[2023-09-29] MEDS ORDERED: ROPIVACAINE 5 MG/ML 30 ML BTL (0.5%) ONE ×2 (10:06→10:24)
[2023-09-29] MEDS ORDERED: Midazolam 2 mg/2 ml VIAL 1 mg/ml 2 ml VIAL (2 mg) ONE ×2 (10:06→11:13)
[2023-09-29] MEDS ORDERED: fentaNYL 100 mcg/2 ml 50 MCG/ML VIAL ONE ×2 (11:48→14:17)
[2023-09-29] MEDS ORDERED: Glycopyrrolate IV 0.2 MG/ML 1 ML VIAL ONE ×2 (11:48→12:10)
[2023-09-29] MEDS ORDERED: Ondansetron 4 mg VIAL 2 MG/ML 2 ml VIAL ONE (12:16)
[2023-09-29] MEDS ORDERED: Bupivacaine-MPF SPINAL 7.5 MG/ML - 2ML AMP ONE (12:27)
[2023-09-29] MEDS ORDERED: Ondansetron ODT 4 mg TAB 4 MG TAB PO PRN (12:41)
[2023-09-29] MEDS ORDERED: Lactulose 30 ml UDC PO PRN (12:41)
[2023-09-29] MEDS ORDERED: Ondansetron 4 mg VIAL 2 MG/ML 2 ml VIAL IV PRN (12:41)
[2023-09-29] MEDS ORDERED: Magnesium Hydroxide LIQ 30 ML UDC PO PRN (12:41)
[2023-09-29] MEDS ORDERED: Propofol 0 MG/0 ML BTL ONE (12:49)
[2023-09-29] MEDS: fentaNYL 100 mcg/2 ml 50 MCG/ML VIAL IV PRN (14:20)
[2023-09-29] MEDS ORDERED: Nicotine GUM 4MG FRUIT FLAVOR PO PRN (15:20)
[2023-09-29] MEDS ORDERED: Nicotine Lozenge mini 4 MG LOZNG.MINI MT PRN (15:20)
[2023-09-29] MEDS ORDERED: Nicotine Lozenge mini 2 MG LOZNG.MINI MT PRN ×2 (15:20→15:21)
[2023-09-29] MEDS ORDERED: Dextrose 50% Syringe 50 ml 25 GM/50 ML SYRINGE IV PUSH PRN (15:23)
[2023-09-29] MEDS: ceFAZolin 1 GM ADVAN 1 GM in NS 0.9% 50 ML 50 ML IVPB SCH (20:45)
[2023-09-29] MEDS: Magnesium Hydroxide LIQ 30 ML UDC PO SCH (20:46)
[2023-09-30 05:55] LABS: Hematocrit 33.1 % (35-45); Hemoglobin 11.3 g/dL (11.5-14.3); Mean Platelet Volume 8.5 fL (7.5-11.2); Platelet Count 245 10^3/uL (150-450)
[2023-09-30 06:06] LABS: Calcium 9.2 mg/dL (8.6-10.3); Creatinine, Serum 0.92 mg/dL (0.51-0.95); Potassium 4.3 mmol/L (3.5-5.0); eGFR CKD-EPI 70.8 (>60)
[2023-09-30] MEDS: Vitamin THERAPEUTIC TAB PO SCH (07:53)
[2023-09-30] MEDS: Aspirin EC 81 mg TAB.EC (enteric coated) PO SCH (07:53)
[2023-09-30] MEDS: Nicotine PATCH 14 MG/24 HR PATCH TRANSDERM SCH (07:54)
[2023-09-30 09:23] VITALS: BP 137/62
[2023-09-30] MEDS ORDERED: NF: ICOSAPENT ETHYL 1 GM CAPSULE (NF) PO SCH (21:00)
== END 2023-09-30 13:10 | disposition home or self-care (01) ==
LOC: OR 07:40 → SSU 07:40 → EDSTATUS 11:00
PROVIDERS: ADMIT Orthopaedic Surgery Adult Reconstructive Orthopaedic Surgery; ATTEND Orthopaedic Surgery Adult Reconstructive Orthopaedic Surgery